=== PATIENT | male | born 1935 | race Caucasian/White ===

== ENCOUNTER 2023-04-20 10:46 | Outpatient (CLI) | payer MEDICARE, BC, SELFPAY | END 2023-04-20 10:47 | disposition home or self-care (01) | LOC: AMB 04-21 11:27 | PROVIDERS: PCP Family Medicine; Visit Provider Emergency Medicine | DX: R53.1 Weakness (principal) | CPT/HCPCS: A0425; A0429 ==

== ENCOUNTER 2023-04-20 11:08 | Emergency (ER) | payer MEDICARE, BC, SELFPAY ==
[2023-04-20] VITALS (30 sets, daily range): BP systolic 87–124; BP diastolic 57–97; PULSE 91–110; RESP 18–26; TEMP 37.3; O2SAT 90–98
--- NOTE | 2023-04-20 11:11 | CT_ITS ---
Patient: ANTONY JAMA Facility:?[facility] Patient ID:?[id number] Site Patient ID:?[id number]. Site :?[id number] Study:?CT-Head WITHOUT-04/20/2023 11:24:59 AM Ordering Physician:NEREYDA Final Report: INDICATION: FALL. PT ON COUMADIN COMPARISON: none TECHNIQUE: A CT volumetric acquisition was performed of the brain without IV contrast. Please note that all CT scans at this facility use dose modulation, iterative reconstruction, and/or weight-based dosing when appropriate to reduce radiation dose to as low as reasonably achievable. FINDINGS: Generalized cortical atrophy is present. There is no hemorrhage. No midline shift or hydrocephalus. Vascular calcifications are present. Basal ganglia calcifications. Chronic white matter changes are present. There is a oblique lucency through the anterior arch of C1 and there is an additional lucency through the body the odontoid. Occipital condyles are intact. Sinuses clear. IMPRESSION: No intracranial hemorrhage. Mildly displaced fracture deformities of the odontoid at the mid/base as well as the right anterior arch of C1, age indeterminate. Called to Dr. Pozo 11:33 a.m. 04.20.23. Please note that all CT scans at this facility use dose modulation, iterative reconstruction, and/or weight-based dosing when appropriate to reduce radiation dose to as low as reasonably achievable. Dictated by Ronan Jacobs MD @ 04/20/2023 11:34:19 AM Signed by:?Ronan Jacobs MD @04/20/2023 11:34:19 AM (Electronic Signature)
--- NOTE | 2023-04-20 11:12 | XR_ITS ---
Patient: ANTONY JAMA Facility:?[facility] Patient ID:?[id number] Site Patient ID:?[id number]. Site :?1935 Study:?XRay-Hip Left Code Trauma - 2 view with pelvis-04/20/2023 11:29:42 AM Ordering Physician:Marivel Pozo Final Report: Indication: Injury, pain Technique: Pelvis and left hip 3 views Comparison: None Findings: Fracture deformity of the left proximal femur is present with intact hardware. Additional intact hardware within the right femoral neck. Degenerative changes at both hips. Intact pubic rami. Vascular calcifications. Degenerative changes lower lumbar spine. There does not appear to be evidence of an acute fracture. Impression: Intertrochanteric fracture of the left proximal femur is present which has been transfixed by open reduction internal fixation hardware. There does not appear to be an acute fracture. Dictated by Ronan Jacobs MD @ 04/20/2023 11:36:18 AM Signed by:?Ronan Jacobs MD @04/20/2023 11:36:18 AM (Electronic Signature)
--- NOTE | 2023-04-20 11:41 | ED.NURSE ---
c collar placed per dr austin
--- NOTE | 2023-04-20 11:44 | CT_ITS ---
Patient: ANTONY JAMA Facility:?[facility] Patient ID:?[id number] Site Patient ID:?[id number]. Site :?[id number] Study:?CT-Spine Cervical -04/20/2023 12:13:35 PM Ordering Physician:NEREYDA Final Report: INDICATION: FALL. FRACTURE SEEN ON HEAD CT TECHNIQUE: CT cervical spine without contrast. COMPARISON: Head CT same day FINDINGS: There is a nondisplaced fracture of the odontoid within the midportion. An additional mildly displaced and slightly comminuted fracture of the right anterior arch of C1 is present. The occipital condyles are maintained. Hypertrophic changes are present between the tip of the odontoid and the C1 arch. Multilevel degenerative facet arthropathy. Discogenic spurring throughout the cervical spine. No vertebral body compression fracture. No facet subluxation deformity. No evidence of temporal bone fracture. Cystic nodule within the left thyroid lobe is incidentally noted. No apical pneumothorax. No cervical adenopathy. IMPRESSION: Fractures of the odontoid and right anterior C1 arch. Please note that all CT scans at this facility use dose modulation, iterative reconstruction, and/or weight-based dosing when appropriate to reduce radiation dose to as low as reasonably achievable. Dictated by Ronan Jacobs MD @ 04/20/2023 12:38:44 PM Signed by:?Ronan Jacobs MD @04/20/2023 12:38:44 PM (Electronic Signature)
--- NOTE | 2023-04-20 12:11 | ED.GENADULT ---
HPI - General Adult General Chief complaint: Head Injury/Pain Stated complaint: fall Time Seen by Provider: 04/20/23 11:11 Source: patient, EMS and RN notes reviewed Mode of arrival: EMS Limitations: other History of Present Illness HPI narrative: Patient is an 87-year-old male who has been at the rehab facility since an ORIF of his left hip about 6 weeks ago. He had a fall last night, unwitnessed. He was noted to have hit his head, no reported loss of consciousness. Patient himself does not have any complaints. He specifically denies headache or neck pain. The care facility noted that he seems to have decreased range of motion in his left hip since his fall though he does not complain about any pain. No reported fevers, cough, difficulty breathing. They have apparently noted that his status seems to have did declined kind of steadily since arrival at the facility. They had started him on treatment for possible UTI but then the urine was reportedly negative on so that was discontinued. There has not been anything really specific going on they just noted that his mental acuity seems to be diminished since arriving. Related Data Allergies Allergy/AdvReac Type Severity Reaction Status Date / Time lisinopril Allergy Unknown Uncoded 04/20/23 12:11 Review of Systems Status of ROS: Reports: 6 or more systems reviewed and unremarkable except as noted in History and below Exam Narrative: Exam Narrative: Vital signs as noted above. In general, an alert, nontoxic elderly male. Head: Normocephalic, atraumatic. Eyes: Pupils are equal reactive. Extraocular movements are full. Conjunctivae are normal. ENT: Mucous membranes are moist. Delete Neck: Supple without lymphadenopathy. Nontender to palpation. Heart: Somewhat irregular, not clear whether this is ectopy or atrial fib. No murmur or rub. Lungs: Clear bilaterally. No increased work of breathing, crackles or wheezes. Abdomen: Soft and nontender. No organomegaly. Extremities: Well perfused. No edema. No calf tenderness. Pulses intact. Range of motion is intact of the left hip, no seeming discomfort. Neurologic: Patient is alert and oriented to person and place. Speech is fluent. Face is symmetric. Moves all extremities equally. Strength is 5 of 5 in bilateral upper extremities. Sensation is intact to light touch. Affect: Normal. Skin: Warm and dry. Well perfused. Const: Vital Signs, click to edit/add: Vital Signs - 24 hr 04/20/23 11:30 04/20/23 11:49 04/20/23 11:50 Temperature 99.2 F Pulse Rate 99 100 Pulse Rate [Left P ulse Oximeter] 95 Respiratory Rate 26 H 20 Blood Pressure 98/64 Blood Pressure [Ri ght Upper Arm] 106/63 Pulse Oximetry 93 95 [facility] 04/20/23 12:09 04/20/23 12:15 04/20/23 12:30 Temperature Pulse Rate 104 H 101 H 109 H Pulse Rate [Left P ulse Oximeter] Respiratory Rate Blood Pressure Blood Pressure [Ri ght Upper Arm] Pulse Oximetry 93 98 95 Oxygen Delivery Ia thod 04/20/23 12:32 04/20/23 12:45 04/20/23 13:00 Temperature Pulse Rate 104 H 100 110 H Pulse Rate [Left P ulse Oximeter] Respiratory Rate 20 Blood Pressure 105/68 Blood Pressure [Ri ght Upper Arm] Pulse Oximetry 92 94 97 [facility] 04/20/23 13:02 04/20/23 13:32 04/20/23 13:32 Temperature Pulse Rate 96 Pulse Rate [Left P ulse Oximeter] Respiratory Rate 18 Blood Pressure 103/63 103/62 103/62 Blood Pressure [Ri ght Upper Arm] Pulse Oximetry 93 [facility] 04/20/23 13:32 04/20/23 14:02 04/20/23 14:32 Temperature Pulse Rate Pulse Rate [Left P ulse Oximeter] Respiratory Rate Blood Pressure 103/62 108/74 109/78 Blood Pressure [Ri ght Upper Arm] Pulse Oximetry Oxygen Delivery Ia thod 04/20/23 15:03 04/20/23 15:32 04/20/23 15:40 Temperature Pulse Rate Pulse Rate [Left P ulse Oximeter] Respiratory Rate 18 Blood Pressure 105/75 87/57 L 111/60 Blood Pressure [Ri ght Upper Arm] Pulse Oximetry Oxygen Delivery Ia thod 04/20/23 16:02 04/20/23 16:32 04/20/23 17:25 Temperature Pulse Rate Pulse Rate [Left P ulse Oximeter] Respiratory Rate 18 Blood Pressure 104/70 89/65 L 124/70 Blood Pressure [Ri ght Upper Arm] Pulse Oximetry Oxygen Delivery Me thod Room Air 04/20/23 17:27 04/20/23 17:30 04/20/23 17:32 Temperature Pulse Rate 91 101 H 101 H Pulse Rate [Left P ulse Oximeter] Respiratory Rate 18 Blood Pressure 113/73 Blood Pressure [Ri ght Upper Arm] Pulse Oximetry 97 97 97 Oxygen Delivery Me thod Room Air 04/20/23 17:52 04/20/23 18:00 04/20/23 18:02 Temperature Pulse Rate 109 H 103 H 97 Pulse Rate [Left P ulse Oximeter] Respiratory Rate 18 Blood Pressure 113/71 Blood Pressure [Ri ght Upper Arm] Pulse Oximetry 95 90 91 Oxygen Delivery Me thod 04/20/23 18:26 04/20/23 18:30 04/20/23 18:32 Temperature Pulse Rate 104 H 98 110 H Pulse Rate [Left P ulse Oximeter] Respiratory Rate 18 Blood Pressure 118/78 Blood Pressure [Ri ght Upper Arm] Pulse Oximetry 95 97 94 Oxygen Delivery Me thod Room Air 04/20/23 18:45 Temperature Pulse Rate 107 H Pulse Rate [Left P ulse Oximeter] Respiratory Rate Blood Pressure Blood Pressure [Ri ght Upper Arm] Pulse Oximetry 93 Oxygen Delivery Me thod Documenting provider has reviewed patient's vital signs: yes Course Course ED Course: Following brief initial evaluation, I sent patient over for a CT of the head given reported anticoagulation trauma. He also had x-rays of the left hip. I was not able to see the images of the CT scan for some reason, but the radiologist did call me saying that the brain looked fine however there was a noted nondisplaced fracture of the dens as well as the ring of C1. Unclear age of these fractures, but we do not have any prior imaging to compare to and the patient denies prior history of neck injury. He continues to deny any neck pain. I did place him in a cervical collar. Will get dedicated cervical spine imaging. The left hip looks intact without damage to the hardware or dislocation. CT of the cervical spine shows the previously mentioned dens fracture and fracture of C1, no other cervical fractures are seen. I reviewed his records, I do not see any history of prior cervical injury. As such, I talked with Neurosurgery, Dr. James, on-call for [place]. He reviewed the images, recommended cervical collar and neurosurgical follow-up. He also 1 of the patient have a CT angiogram. I did do the CT angiogram of the head and neck which is read by Radiology as negative. I checked some basic labs, his INR is therapeutic at 2.4. Metabolic panel largely unremarkable, BUN is mildly elevated at 39 but creatinine is normal at 1. COVID fluid in RSV are negative. White blood cell count is 9.93. Hemoglobin is 9.8. Baseline unknown, but no reported history of bleeding. He did have his hip surgery not too long ago, and may have some persistent anemia related to that. There was quite a delay in getting him taking care of in terms of the collar. I had hoped to get a [place] or [place] collar. Original plan was to transfer him to a different ER, but the physician I spoke to at [place] had suggested it would make more sense to simply have somebody spanish moss picker a collar for him rather than moving the patient and incurring a new ER visit. We did make multiple attempts to do this, contacted several different [facility], but no one had an available collar. [facility] only had 1 [place] and there were not willing to give it to us. [place] apparently was similar. [facility] only had [place] collars 1, which we were able to find here. Patient had been here for 7 hours by this point, had developed some agitation related I think to his underlying dementia. He had 5 mg of Zyprexa which helped. We switched him to the [place] collar, he seems to tolerate this okay, and at this point I have elected to discharge him back to the shelter. He will need neurosurgical follow-up, and they can switch him at that time to a more permanent collar if needed. Vital Signs Vital signs: Initial Vital Signs Temperature 99.2 F 04/20/23 11:30 Temperature Source Temporal Artery Scan 04/20/23 11:30 Pulse Rate 95 04/20/23 11:30 Respiratory Rate 26 H 04/20/23 11:30 Blood Pressure 106/63 04/20/23 11:30 Blood Pressure Mean 77 04/20/23 11:30 Blood Pressure Position Supine 04/20/23 11:30 Pulse Oximetry 93 04/20/23 11:30 Oxygen Delivery Method Room Air 04/20/23 11:30 Vital Signs Temperature 99.2 F 04/20/23 11:30 Pulse Rate 95 04/20/23 11:30 Respiratory Rate 26 H 04/20/23 11:30 Blood Pressure 106/63 04/20/23 11:30 Pulse Oximetry 93 04/20/23 11:30 Oxygen Delivery Method Room Air 04/20/23 11:30 Temperature 99.2 F 04/20/23 11:30 Pulse Rate 107 H 04/20/23 18:45 Respiratory Rate 18 04/20/23 18:32 Blood Pressure 118/78 04/20/23 18:32 Pulse Oximetry 93 04/20/23 18:45 Oxygen Delivery Method Room Air 04/20/23 18:32 Medications Administered Medications: Discontinued Medications Generic Name Dose Route Start Last Admin Trade Name Freq PRN Reason Stop Dose Admin Acetaminophen 1,000 mg 04/20/23 12:52 04/20/23 13:08 Acetaminophen 500 Mg Tablet PO 04/20/23 12:53 1,000 mg ONCE ONE Administration Olanzapine 5 mg 04/20/23 17:02 04/20/23 17:19 Olanzapine 5 Mg/Ml Inj IM 04/20/23 17:03 5 mg ONCE ONE Administration Medical Decision Making Lab Data Labs: Lab Results 04/20/23 04/20/23 Range/Units 11:50 12:20 WBC 9.93 (4.50-11.00) K/uL RBC 3.37 L (4.30-5.90) m/uL Hgb 9.8 L (13.5-17.5) gm/dL Hct 31.8 L (37.0-53.0) % MCV 94 (80-100) fL MCH 29 (26-34) pg MCHC 31 L (32-36) gm/dL RDW Coeff of Crista 17.4 H (11.5-15.5) % Plt Count 173 (140-440) K/uL Neut % (Auto) 77.9 H (42.0-72.0) % Lymph % (Auto) 12.2 L (20-44) % [place] % (Auto) 7.9 (0.0-11.0) % Eos % (Auto) 1.0 (0.0-7.0) % Baso % (Auto) 0.2 (0.0-3.0) % Neut # (Auto) 7.70 H (1.7-7.0) K/uL Lymph # (Auto) 1.20 (0.90-2.90) K/uL [place] # (Auto) 0.80 (0.00-0.90) K/UL Eos # (Auto) 0.10 (0.00-0.50) K/uL Baso # (Auto) 0.02 (0.00-0.30) K/uL Abs Immat Gran (auto) 0.08 (0.00-0.30) K/uL Imm/Tot Granulo (auto) 0.8 % INR 2.40 H (0.91-1.10) APTT 44 H (23-33) Seconds Sodium 139 (135-149) mmol/L Potassium 4.7 (3.6-5.1) mmol/L Chloride 106 (96-114) mmol/L Carbon Dioxide 27 (20-32) mmol/L Anion Gap 6 L (7-15) mEq/L BUN 39 H (7-30) mg/dL Creatinine 1.0 (0.5-1.5) mg/dL Estimated GFR 73 ml/min Glucose 180 H (60-115) mg/dL Calcium 9.7 (8.4-10.6) mg/dL SARS-CoV-2 (PCR) Negative SARS-CoV-2 (Negative) Influenza Type A (PCR) Negative PCR FLU A (Negative) Influenza Type B (PCR) Negative PCR FLU B (Negative) RSV (PCR) Negative PCR RSV (Negative) Discharge Plan Discharge Clinical Impression: Odontoid fracture, C1 cervical fracture Patient Disposition: Xfer SNF Condition: Stable Instructions: Cervical Fracture (DC) Additional Instructions: Cervical collar as placed, should stay in place at all times. Patient will need neurosurgical follow-up with [facility], through [facility]. I spoke with Dr. James today about this patient. CT of the head, CT angiogram of the head and neck are normal. Stand Alone Forms: MyHealth Info Instructions
[2023-04-20 12:32] LABS: Basophils Absolute Auto 0.02 K/uL (0.00-0.30); Basophils Percent Auto 0.2 % (0.0-3.0); Hematocrit 31.8 % (37.0-53.0); Hemoglobin* 9.8 gm/dL (13.5-17.5); Immature Granulocytes Abs Auto 0.08 K/uL (0.00-0.30); Immature Granulocytes Pct Auto 0.8 %; Lymphocytes Percent Auto 12.2 % (20-44); Mean Corpuscular HGB Conc 31 gm/dL (32-36); Mean Corpuscular Hemoglobin 29 pg (26-34); Mean Corpuscular Volume 94 fL (80-100); Monocytes Percent Auto 7.9 % (0.0-11.0); Neutrophils Percent Auto 77.9 % (42.0-72.0); Platelet Count* 173 K/uL (140-440); RDW Coefficient of Variation % 17.4 % (11.5-15.5); Red Blood Count 3.37 m/uL (4.30-5.90); White Blood Count* 9.93 K/uL (4.50-11.00)
[2023-04-20 12:41] LABS: PCR FLU A Negative PCR FLU A (Negative); PCR FLU B Negative PCR FLU B (Negative); PCR RSV Negative PCR RSV (Negative); SARS PCR* Negative SARS-CoV-2 (Negative)
[2023-04-20 12:45] LABS: Slide Review Reflex No
[2023-04-20 12:51] LABS: Chloride* 106 mmol/L (96-114); Potassium* 4.7 mmol/L (3.6-5.1); Sodium* 139 mmol/L (135-149)
[2023-04-20 12:54] LABS: Anion Gap 6 mEq/L (7-15); Blood Urea Nitrogen* 39 mg/dL (7-30); Carbon Dioxide* 27 mmol/L (20-32); Estimated Glomerular Filt Rate 73 ml/min; Glucose* 180 mg/dL (60-115); Partial Thromboplastin Time* 44 Seconds (23-33)
[2023-04-20 12:55] LABS: Calcium* 9.7 mg/dL (8.4-10.6)
[2023-04-20] MEDS: ACETAMINOPHEN 500 MG TABLET 1000 MG PO (13:08)
--- NOTE | 2023-04-20 15:09 | ED.NURSE ---
Call from [facility], updated, awaiting consult from ANW. [facility] had reached out to Pt family Storm Kamara, and Migel. Migel works nights, so global technical writer did call and update Asad.
--- NOTE | 2023-04-20 16:40 | CT_ITS ---
Patient: ANTONY JAMA Facility:?[facility] Patient ID:?[id number] Site Patient ID:?[id number]. Site :?[id number] Study:?CT-Neck Angio Angio CTA HEAD AND NECK-04/20/2023 6:02:06 PM Ordering Physician:NEREYDA Final Report: DATE: 04/20/2023 CLINICAL HISTORY: Patient with fall and cervical spine fractures. TECHNIQUE: Standard helical CT image acquisition of the neck up to the skull base after bolus intravenous contrast enhancement. 2D and 3D MIP images for post-processing were performed and interpreted on an independent workstation and 3D images were permanently archived. COMPARISON: CT same day. FINDINGS: There is no dissection associated with C1 and C2 spine fractures. The origins of the great vessels from the aortic arch are patent. The origin of the right vertebral artery is patent. The origin of the left vertebral artery is patent. The common carotid arteries are patent. There is a mild (<50%) stenosis at the origin of the right internal carotid artery by NASCET criteria. This is caused by calcified plaque with a <2mm residual lumen. There is a moderate (60%) stenosis at the origin of the left internal carotid artery by NASCET criteria. This is caused by calcified plaque with a 1.7mm residual lumen. The rest of the cervical segments of the internal carotid arteries are patent up to the skull base. The left vertebral artery is dominant. The cervical segments of the vertebral arteries are patent up to the skull base. The visualized lung apices are unremarkable. The thyroid gland is unremarkable. The soft tissues of the neck are unremarkable. IMPRESSION: 1. No dissection associated with C1 and C2 spine fractures. 2. Mild (<50%) stenosis at the origin of the right internal carotid artery by NASCET criteria. This is caused by calcified plaque with a <2mm residual lumen. 3. 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 This is caused by calcified plaque with a 1.7mm residual lumen. Please note that all CT scans at this facility use dose modulation, iterative reconstruction, and/or weight-based dosing when appropriate to reduce radiation dose to as low as reasonably achievable. Dictated by Gustavo Mansfield MD @ 04/20/2023 10:41:37 PM Signed by:?Gustavo Mansfield MD @04/20/2023 10:41:37 PM (Electronic Signature)
--- NOTE | 2023-04-20 16:45 | CT_ITS ---
Patient: ANTONY JAMA Facility:?[facility] Patient ID:?[id number] Site Patient ID:?[id number]. Site :?[id number] Study:?CT-Head Angio Angio CTA HEAD AND NECK-04/20/2023 6:03:19 PM Ordering Physician:NEREYDA Final Report: DATE: 04/20/2023 CLINICAL HISTORY: Patient with fall and cervical spine fractures. TECHNIQUE: Standard helical CT image acquisition through the intracranial circulation following intravenous administration of contrast material with bolus tracking. 2D and 3D MIP images for post-processing were performed and interpreted on an independent workstation and 3D images were permanently archived. COMPARISON: CT same day. FINDINGS: There is no cerebral aneurysm or large vessel occlusion. The right internal carotid artery is normal. The right middle cerebral artery and its branches are normal. The right anterior cerebral artery and its branches are normal. The left internal carotid artery is normal. The left middle cerebral artery and its branches are normal. The left anterior cerebral artery and its branches are normal. The anterior communicating artery is well visualized and appears normal. The right vertebral artery and PICA are normal. The left vertebral artery and PICA are normal. The left vertebral artery is dominant. The basilar artery is patent and appears normal. The right posterior cerebral artery is normal. The left posterior cerebral artery is normal. The visualized venous structures are patent. IMPRESSION: Normal CT angiogram of the head without intracranial aneurysm or other neurovascular abnormality. Please note that all CT scans at this facility use dose modulation, iterative reconstruction, and/or weight-based dosing when appropriate to reduce radiation dose to as low as reasonably achievable. Dictated by Gustavo Mansfield MD @ 04/20/2023 10:43:38 PM Signed by:?Gustavo Mansfield MD @04/20/2023 10:43:38 PM (Electronic Signature)
[2023-04-20] MEDS: OLANZapine 5 MG/ML inj IM (17:19)
--- NOTE | 2023-04-20 17:20 | ED.NURSE ---
Pt changed from c collar to [place] collar per Dr. Pozo.
--- NOTE | 2023-04-20 19:11 | ED.NURSE ---
Absorption Plant Operator did call and update family contact Migel about discharge plan. Migel will update Sharda
--- NOTE | 2023-04-20 19:24 | ED.NURSE ---
Report given to ARTUR Green at [facility]. Migel agreed and [facility] updated that Pt will transfer back to [facility] via ambulance.
--- NOTE | 2023-04-20 19:39 | ED.NURSE ---
called dispatch to return to [address] [place] [address]. unable return for EMS [id number]
--- NOTE | 2023-04-20 20:52 | ED.NURSE ---
patient has a one to one in the room with patient. patient will occasionally want the collar off. repositioning of the collar and patient redirected helps distract patient from the collar.
--- NOTE | 2023-04-20 22:02 | ED.NURSE ---
patient repositioned in bed and sitting up. attempting to take the collar off will be talking nonstop and stating this is choking me.
[2023-04-20] MEDS: OLANZapine 5 MG/ML inj 10 MG IM (22:10)
--- NOTE | 2023-04-20 22:10 | ED.NURSE ---
Pt continuing to attempt to remove his [place] collar and yelling and agitated towards 1:1 sitter. MD in room to again explain importance of keeping collar on to the pt due to pt neck fractures and risk of injury. Pt continues to try and remove collar regardless of this explanation. MD ordered additional IM medication due to pt agitation. Security present in the room to assist with med administration due to pt agitation. MD and security did secure pt arms in a light therapeutic hold but pt did not physically resist so no force was needed to secure pt's limbs. Pt did yell repeated vulgarities towards staff throughout this event. Staff exited the room once med was administered. 1:1 sitter remains in room at the bedside.
--- NOTE | 2023-04-20 22:35 | ED.NURSE ---
[facility] RN updated about new pt rx that was sent to [facility] pharmacy for pt.
--- NOTE | 2023-04-20 23:13 | ED.NURSE ---
Pt departs via EMS. [facility] updated about pt departure from ER.
== END 2023-04-20 23:16 | disposition other institution (70) ==
PROVIDERS: Emergency Provider Emergency Medicine; PCP Family Medicine
DX: S09.90XA Unspecified injury of head, initial encounter (principal)
CPT/HCPCS: 36415; 70450; 70496; 70498; 72125; 73502; 80048; 85025; 85610; 85730; 87631; 99284; A9270; Q9967

== ENCOUNTER 2023-04-20 23:15 | Outpatient (CLI) | payer MEDICARE, BC, SELFPAY | END 2023-04-20 23:16 | disposition home or self-care (01) | PROVIDERS: PCP Family Medicine; Visit Provider Emergency Medicine Emergency Medical Services | DX: R41.82 Altered mental status, unspecified (principal); Z99.3 Dependence on wheelchair | CPT/HCPCS: A0425; A0428; A0429 ==

== ENCOUNTER 2023-04-21 01:55 | Outpatient (CLI) | payer MEDICARE, BC, SELFPAY | END 2023-04-21 01:56 | disposition home or self-care (01) | LOC: AMB 04-25 09:01 | PROVIDERS: PCP Family Medicine; Visit Provider Family Medicine | DX: F91.9 Conduct disorder, unspecified (principal) | CPT/HCPCS: A0425; A0427 ==

== ENCOUNTER 2023-04-21 02:19 | Inpatient (IN) | payer MEDICARE, BC, SELFPAY ==
[2023-04-21] VITALS (13 sets, daily range): BP systolic 111–137; BP diastolic 64–89; PULSE 91–119; RESP 16–28; TEMP 35.9–36.8; O2SAT 90–99
--- NOTE | 2023-04-21 03:22 | ED.GENADULT ---
HPI - General Adult General Date Seen: 04/21/23 Chief complaint: Altered Mental Status Stated complaint: Aggression Time Seen by Provider: 04/21/23 02:44 Source: EMS and RN notes reviewed Mode of arrival: EMS Limitations: altered mental status History of Present Illness HPI narrative: Patient is an 87-year-old male who spent most of yesterday here in the emergency department for evaluation of a fall, dens fracture, C1 ring fracture superimposed on either progressive dementia or delirium. He came from [facility] and was sent back there at 11:00 p.m. in a cervical collar with a plan for neurosurgical follow-up. He last at the detention for less than 2 hours before they called EMS because of his agitation. This was well managed with Zyprexa in the ER and does not appear that they gave him a dose before sending him back to us. They have stated that they will not take him back as he will require a facility that can provide one-to-one care. Please see the note from Dr. Pzoo that fully outlines the care received here yesterday. Related Data Previous Rx's Medication Instructions Recorded olanzapine 5 mg tablet (Zyprexa) 5 mg PO BID PRN #30 tabs 04/20/23 Allergies Allergy/AdvReac Type Severity Reaction Status Date / Time lisinopril Allergy Unknown Uncoded 04/20/23 12:11 Review of Systems Narrative: Unchanged from yesterday. 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 He is agitated and pulling at his cervical collar, oxygen, Jernigan catheter. He can be briefly redirected. He does not make any meaningful verbal response. Const: Vital Signs, click to edit/add: Vital Signs - 24 hr 04/21/23 02:25 Temperature 96.6 F L Pulse Rate [Pulse Oximeter] 111 H Respiratory Rate 16 Blood Pressure [Ri ght Upper Arm] 128/83 Pulse Oximetry 98 Oxygen Delivery Me thod Nasal Cannula Course Course ED Course: Patient is seen and examined. His status is no different than it was 3 hours ago when he was discharged. He received a dose of Zyprexa in route and is sedated and relatively cooperative. My options are to either keep him in the emergency department until at discharge plan can be formulated or admit him to the hospital until such a plan can be made. Neither option is good but I did contact [facility] who reluctantly agrees to except him. I think a family conference needs to happen regarding their long-term plans for Mr. Sevilla. He would certainly be an appropriate candidate for hospice/comfort care. I do not know that we are going to find a detention willing to do a 1:1 with him. I suspect that he is going to require significant sedation to keep his cervical collar in place and according to the neurosurgeon that needs to be in place for the next three months. I appreciate [facility]'s willingness to accept this patient. He did receive 5 mg of Zyprexa in the ER prior to transferring to the floor. Vital Signs Vital signs: Initial Vital Signs Temperature 96.6 F L 04/21/23 02:25 Temperature Source Temporal Artery Scan 04/21/23 02:25 Pulse Rate 111 H 04/21/23 02:25 Respiratory Rate 16 04/21/23 02:25 Blood Pressure 128/83 04/21/23 02:25 Blood Pressure Mean 98 04/21/23 02:25 Pulse Oximetry 98 04/21/23 02:25 Oxygen Delivery Method Nasal Cannula 04/21/23 02:25 Vital Signs Temperature 96.6 F L 04/21/23 02:25 Pulse Rate 111 H 04/21/23 02:25 Respiratory Rate 16 04/21/23 02:25 Blood Pressure 128/83 04/21/23 02:25 Pulse Oximetry 98 04/21/23 02:25 Oxygen Delivery Method Nasal Cannula 04/21/23 02:25 Temperature 96.6 F L 04/21/23 02:25 Pulse Rate 111 H 04/21/23 02:25 Respiratory Rate 16 04/21/23 02:25 Blood Pressure 128/83 04/21/23 02:25 Pulse Oximetry 98 04/21/23 02:25 Oxygen Delivery Method Nasal Cannula 04/21/23 02:25 Discharge Plan Discharge Clinical Impression: Delirium due to general medical condition, C1 cervical fracture Patient Disposition: Admitted As Observation Condition: Stable
[2023-04-21] MEDS: OLANZapine 5 MG/ML inj IVP (03:27)
--- NOTE | 2023-04-21 03:39 | ED.NURSE ---
patient report given to elidia SIDDIQUI- patient being admitted to [facility]
--- NOTE | 2023-04-21 05:01 | W.PM.TELEH&P ---
Telehealth- H&P: HPI History of Present Illness Date Seen: 04/21/23 Chief complaint: Behavior Difficulties Narrative: Andrzej Sevilla is seen as an Interactive Telehealth visit. Andrzej Sevilla is a 87 year old male who was sent back to the ER from the intermediate after having some behavioral difficulties. Andrzej has a significant past medical history of unfortunately having a fall yesterday which resulted in a dens fracture and C1 ring fracture. He also has a past medical history of atrial fibrillation anticoagulated on Coumadin, end-stage progressive dementia, congestive heart failure, BPH, hypertension and diabetes mellitus type 2. He was seen yesterday in the emergency room and was placed in a cervical collar with a plan for neurosurgical follow-up. He was discharged to the intermediate and apparently was there for approximately 2 hours when he was sent back via EMS for agitation. The intermediate provider states that he was well-managed from a behavioral standpoint on twice daily Zyprexa in the emergency room, but unfortunately he did not get any further doses before discharge back to the intermediate and they were unable to get him any medications upon arrival. Andrzej was given his medications in the emergency room and has been better controlled from a behavior standpoint, but unfortunately the facility would require one-to-one care and could not take him back this morning. At the time I am seeing Andrzej, he does wake up to verbal command but continues to be quite confused. I am not certain of his baseline, but nursing staff did believe that this may be close to his baseline with his advanced dementia. Andrzej denies any significant pain at the time I am seeing him and really can offer no further history. All of the history on Andrzej is currently achieved through review of the chart, from nursing staff and from the ER provider signout. Review of Systems Status of ROS: Reports: unobtainable due to mental status [facility] Medical History Congestive heart failure ?I50.9 - Heart failure, unspecified (ICD-10) Constipation ?K59.00 - Constipation, unspecified (ICD-10) Hypercholesteremia ?E78.00 - Pure hypercholesterolemia, unspecified (ICD-10) Atrial fibrillation ?I48.91 - Unspecified atrial fibrillation (ICD-10) Malignant neoplasm determined by biopsy of prostate ?C61 - Malignant neoplasm of prostate (ICD-10) Atherosclerotic heart disease ?I25.10 - Atherosclerotic heart disease of [place] coronary artery without angina pectoris (ICD-10) Type 2 diabetes mellitus ?E11.9 - Type 2 diabetes mellitus without complications (ICD-10) Social History What is your current living situation?: unable to answer Problems where you live: unable to answer Problems where you live details: n/a In the past 12 months, utilities in danger of being shut off: unable to answer In past 12 months, lack of transportation kept you from medical appts, meetings, work, or getting things needed for daily living: unable to answer In the past 12 mos, have been you worried that your food would run out before you had money to buy more?: unable to answer In the past 12 mos, the food you bought just didn't last and you didn't have money to buy more?: unable to answer How often does anyone, including family, friends and others, physically hurt you: unable to answer How often does anyone, including family, friends and others, insult or talk down to you: unable to answer How often does anyone, including family, friends and others, threaten you with harm: unable to answer How often does anyone, including family, friends and others, scream or curse at you: unable to answer Meds Home Medications and Allergies Allergies Allergy/AdvReac Type Severity Reaction Status Date / Time lisinopril Allergy Unknown Uncoded 04/20/23 12:11 Exam Narrative Exam Narrative: GENERAL: vital signs reviewed, well developed and nourished, in no distress HEENT: pupils are equal round and reactive to light, extraocular movements are grossly within normal limits and oral mucosa is dry. NECK: A rigid c-collar is in place HEART: Irregularly irregular rate and rhythm consistent with atrial fibrillation with a slightly tachycardic rate at approximately 105 beats per my auscultation. LUNGS: Clear to auscultation bilaterally with good air movement throughout ABDOMEN: Observation from nurse assisted exam, abdomen appears soft, nontender, and nondistended with Positive bowel sounds noted. EXTREMITIES: Strength and sensation is observed to be decreased in the upper and lower extremities, but symmetric. No focal strength deficit is observed SKIN: Observed warm and dry with color normal NEURO: Alert and awake when spoken to. He does answer yes/no questions somewhat appropriately. He does move all extremities spontaneously, but is agitated at times with the physical examination and does not carry on any conversation. I do believe that he does have baseline dementia and is currently having some behavioral difficulties due to his dementia and limitations of movement with his c-collar currently.. PSYCH: Affect confusion with agitation Const Vital Signs, click to edit/add: Vital Signs - 24 hr 04/21/23 02:25 04/21/23 02:27 04/21/23 02:28 Temperature 96.6 F L Pulse Rate 111 H 113 H Pulse Rate [Pulse Oximeter] 111 H Respiratory Rate 16 Blood Pressure 128/83 Blood Pressure [Right Upper Arm] 128/83 Pulse Oximetry 98 96 96 Oxygen Delivery Method Nasal Cannula Nasal Cannula Oxygen Flow Rate 3 04/21/23 02:30 04/21/23 03:09 04/21/23 03:15 Temperature Pulse Rate 112 H 119 H 112 H Pulse Rate [Pulse Oximeter] Respiratory Rate Blood Pressure Blood Pressure [Right Upper Arm] Pulse Oximetry 96 96 94 Oxygen Delivery Method Oxygen Flow Rate 04/21/23 03:30 04/21/23 04:02 Temperature Pulse Rate 105 H Pulse Rate [Pulse Oximeter] Respiratory Rate 16 Blood Pressure Blood Pressure [Right Upper Arm] Pulse Oximetry 99 94 Oxygen Delivery Method Room Air Oxygen Flow Rate Documenting provider has reviewed patient's vital signs: yes Common normals: no apparent distress Exam limitations: altered mental status and behavioral limitations Hospitalist - H&P: Result Imaging CT scan - head: Radiologist's impression: IMPRESSION: No intracranial hemorrhage. Mildly displaced fracture deformities of the odontoid at the mid/base as well as the right anterior arch of C1, age indeterminate. CT- Other: Attestation: I have reviewed the pertinent imaging results. Radiologist's impression: CT of the cervical spine:IMPRESSION: Fractures of the odontoid and right anterior C1 arch. Assessment and Plan Assessment and plan (1) Delirium due to general medical condition: Status: Acute (2) C1 cervical fracture: Status: Acute (3) Odontoid fracture: Status: Acute Plan Assessment: 1. Recent fall with resulting odontoid and right anterior C1 arch fracture?currently in rigid collar 2. Acute metabolic encephalopathy on top of chronic dementia with resultant difficult behavior from #1 above 3. Atrial fibrillation currently anticoagulated on Coumadin with therapeutic INR 4. Hypertension 5. BPH 6. Diabetes mellitus type 2 7. History of congestive heart failure currently with what looks to be volume depletion/dehydration 8. Constipation history 9. Chronic normocytic anemia most likely due to chronic disease with no sign of acute active bleeding?currently at baseline Plan: At this time Andrzej will be admitted to the medical service. Unfortunately, this will be a difficult case as Andrzej is most likely going to have some chronic dementia along with some acute encephalopathy due to his current medical condition. It does seem that he does not like to wear the rigid c-collar, but with his current odontoid and C1 arch fracture, he will most likely need to wear this for quite some time depending on neurosurgery's recommendations. I would suggest a family conference for ongoing goals of care and evaluation by psychiatry if possible for help with some mood stabilizing medications with his current medical condition. I will ask pharmacy to follow his INR for goal between 2.0 and 3.0 with his atrial fibrillation on Coumadin. I will ask pharmacy to also reconcile his home medications for reinitiation as needed. I will put on some correction scale insulin for his diabetes mellitus. I will give some oral pain medications, but will need to watch his behavioral status closely with any type of narcotic pain medication and will need to balance his behavior and symptomatic pain relief. Would suggest follow-up with hematology labs to make sure that his hemoglobin remains stable. I did discuss CODE STATUS with nursing and I do believe there is a POLST document that will need to be retrieved from the intermediate, but at this point, Andrzej would be too confused to answer CODE STATUS questions and he will remain full CODE STATUS until the POLST document can be received. I have explained this plan to Andrzej. Will continue to follow from medical standpoint. Telehealth: Statement Statement Telehealth Visit: Today's History and Physical is provided via interactive telehealth by Braxton Ying MD.? Patient is located at [facility].? Provider is located at [facility].? Nursing staff assisted with the patient's exam. The visit being done today meets criteria for a telehealth visit and the patient or patient?s parent/guardian is aware the visit is a telehealth visit. Camera Start Time: 04:23 Camera End Time: 04:34
--- NOTE | 2023-04-21 06:54 | PC.NURSE ---
disoriented. Pt restless, reaching for things that are not there. Pt frequently attempts to remove C-Collar. 2+ pitting edema to BLE. 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 ?
--- NOTE | 2023-04-21 09:49 | PC.SOCIAL ---
Discharge planning: Called [facility] and spoke with nurse, Angeline, , who clarified pt has been receiving emt intermediate care at the [facility]. He is not in memory care and did not have the level of agitation he has now prior to the fall. Per Angeline at [facility], they can not accept pt back as a one to one care and can not meet his needs at this time. If there are nursing questions for [facility] over the weekend, please call the RN desk on [facility] unit at [phone]. 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
--- NOTE | 2023-04-21 10:01 | REH.PT ---
Orders received for PT Eval & Treat. Chart Reviewed. Pt sitting up in chair and unarousable this am. Not appropriate for PT at this time. Will reattempt eval tomorrow.
[2023-04-21] MEDS: 0.9 % SODIUM CHLORIDE 1000 ml 1,000 ML 100 ML IV ×2 (11:15→20:54)
[2023-04-21] MEDS: SODIUM CHLORIDE 0.9 % (FLUSH) 10 ML SYRINGE 5 ML IVF (11:15)
[2023-04-21 11:28] LABS: INR 2.07 (0.91-1.10); Prothrombin Time 24.8 Seconds
[2023-04-21] MEDS: ACETAMINOPHEN 325 MG TABLET PO ×2 (11:44→17:24)
[2023-04-21] MEDS: atenoloL 25 MG TABLET 75 MG PO (11:44)
--- NOTE | 2023-04-21 13:54 | PM.IMPN1 ---
Progress Note: A&P Assessment and plan (1) Delirium due to general medical condition: Problem details: - unclear if delirium preceded or occurred in consequence of the fall and fx on 04/20/23 - staff at [facility] where he has been living indicate they are not able to safely provide the level of care that he now demonstrates to them, which was 1:1 at time they transferred him to the ED for assessment. Status: Acute (2) C1 cervical fracture: Problem details: - s/p unwitnessed fall 04/20/23 - Neurosurgery reviewed images and recommends c-spine mobilization and follow-up with neurosurgery Status: Acute (3) Odontoid fracture: Problem details: - s/p unwitnessed fall 04/20/23 - Neurosurgery reviewed images and recommends c-spine mobilization and follow-up with neurosurgery Status: Acute (4) Fall: Problem details: - unwitnessed fall on 04/20/2023 with resultant C1C2 fxs Status: Acute (5) History of bad fall: Problem details: - 03/13/2023 with left intertrochanteric fx, s/p ORIF at [place], [place], hospital Status: Acute (6) Atrial fibrillation: Problem details: - anticoagulated on warfarin - continue to A Fib RVR rate control Status: Acute (7) Cognitive impairment: Problem details: - outside medical records I review indicate this as a problem for the past few years, but do not specify any type of dementia - per sonIon, patient's cognition has rapidly declined since 03/13/23 and is not recovering Status: Acute (8) Microscopic hematuria: Problem details: - per RN telephone conversation patient grandsonMigel, on 04/21/23, patient has had a mcintyre catheter in place for the past 1.5 weeks due to urinary retention Status: Acute (9) Urinary retention: Problem details: - 04/21/2023: Mcintyre catheter has been in place for the past 1.5 weeks to address the urinary retention Status: Acute Plan 1. Reviewed impression with patient sonIon, via telephone. Plan for now is to attempt to address possible delirium 2. IV fluids for suspected dehydration. 3. Continue supportive efforts 4. Continue work with occupational therapy and physical therapy 5. Continue work with patient and his family Time Spent With Patient Total time spent: 50 minutes Subjective Date Seen: 04/21/23 Interval history: History of present illness on history and physical: ?Adnrzej Sevilla is seen as an Interactive Telehealth visit. Andrzej Sevilla is a 87 year old male who was sent back to the ER from the senior living after having some behavioral difficulties. Andrzej has a significant past medical history of unfortunately having a fall yesterday which resulted in a dens fracture and C1 ring fracture. He also has a past medical history of atrial fibrillation anticoagulated on Coumadin, end-stage progressive dementia, congestive heart failure, BPH, hypertension and diabetes mellitus type 2. He was seen yesterday in the emergency room and was placed in a cervical collar with a plan for neurosurgical follow-up. He was discharged to the senior living and apparently was there for approximately 2 hours when he was sent back via EMS for agitation. The senior living provider states that he was well-managed from a behavioral standpoint on twice daily Zyprexa in the emergency room, but unfortunately he did not get any further doses before discharge back to the senior living and they were unable to get him any medications upon arrival. Andrzej was given his medications in the emergency room and has been better controlled from a behavior standpoint, but unfortunately the facility would require one-to-one care and could not take him back this morning. At the time I am seeing Andrzej, he does wake up to verbal command but continues to be quite confused. I am not certain of his baseline, but nursing staff did believe that this may be close to his baseline with his advanced dementia. Andrzej denies any significant pain at the time I am seeing him and really can offer no further history.? Hospital day 1. Patient is rather sleepy throughout the morning and early afternoon as I am assessing him often on throughout the day. He does not open his eyes when I asked him to do so. When I try to help him stand he attempts to do so for about 15 seconds while his eyes are closed but is not able to coordinate his efforts and do so safely or independently, and then he stops trying. A not able to get any meaningful history from him. I attempt to call the individuals listed on his hospital contact list. I am unable to reach his grandson, Migel, , but do leave a message for return call. The number listed for his 2nd contact, his son Storm, , is a non functioning telephone number. The 3rd number listed on his contact list is his son Ion, who I am able to reach and speak with, phone number [phone]. According to Ion, patient was living independently until he sustained a major fall on 03/13/2023, and sustained a femur fracture for which he underwent an open reduction internal fixation at the [facility] and [place]. According to Ion, patient's level of awareness has been decreased since the fall, confusion and agitation have been increased since the fall. After a protracted hospitalization, patient was transferred to [address] [place] [address] for rehabilitation purposes. The confusion and agitation have been gradually escalating. After the fall that he sustained on 04/20/2023, the staff at [address] [place] [address] indicated that the patient's level of agitation was too much for them to safely address, indicating that based on their assessment he was requiring one-to-one support and they do not have the staffing to accommodate this. Should the agitation resolve they might be able to continue to try to meet his needs. Exam Narrative: Exam Narrative: Eye exam patient in his hospital room. He is sitting in a chair at his bedside with back at approximately 75 degree angle and feet on the floor. He has a Mcintyre catheter in place. Eyes are closed. Occasionally responds to questions. Denies having pain. As best as I can tell he is not oriented to place, time, or situation. Every now and then attempts to remove the C-collar that he has in place. Yet he states it does not bother him. Lungs are clear to auscultation. Heart tones are chaotic and about 120. Add with active bowel sounds. Pretibial edema bilaterally. No IV access when I 1st examined him due to his pulling the IV out after IVs were established earlier. Const: Vital Signs, click to edit/add: Vital Signs - 24 hr 04/21/23 02:25 04/21/23 02:27 04/21/23 02:28 Temperature 96.6 F L Pulse Rate 111 H 113 H Pulse Rate [Pulse Oximeter] 111 H Respiratory Rate 16 Blood Pressure 128/83 Blood Pressure [Le ft Arm] Blood Pressure [Ri ght Upper Arm] 128/83 Pulse Oximetry 98 96 96 Oxygen Delivery Me thod Nasal Cannula Nasal Cannula Oxygen Flow Rate 3 04/21/23 02:30 04/21/23 03:09 04/21/23 03:15 Temperature Pulse Rate 112 H 119 H 112 H Pulse Rate [Pulse Oximeter] Respiratory Rate Blood Pressure Blood Pressure [Le ft Arm] Blood Pressure [Ri ght Upper Arm] Pulse Oximetry 96 96 94 Oxygen Delivery Me thod Oxygen Flow Rate 04/21/23 03:30 04/21/23 04:02 04/21/23 04:02 Temperature 97.7 F Pulse Rate 105 H Pulse Rate [Pulse Oximeter] 115 H Respiratory Rate 16 26 H Blood Pressure Blood Pressure [Le ft Arm] 124/87 Blood Pressure [Ri ght Upper Arm] Pulse Oximetry 99 94 94 Oxygen Delivery Me thod Room Air Room Air Oxygen Flow Rate 04/21/23 07:00 04/21/23 07:00 04/21/23 11:00 Temperature 98.2 F 98.3 F Pulse Rate Pulse Rate [Pulse Oximeter] 114 H 117 H 117 H Respiratory Rate 28 H 20 Blood Pressure Blood Pressure [Le ft Arm] 123/89 137/77 Blood Pressure [Ri ght Upper Arm] Pulse Oximetry 94 94 Oxygen Delivery Me thod Room Air Room Air Oxygen Flow Rate Documenting provider has reviewed patient's vital signs: yes Labs Labs: Laboratory Results - last 24 hr 04/21/23 11:00 INR 2.07 H Imaging Hip x-ray: Attestation: I have reviewed the pertinent imaging results. Radiologist's impression: Intertrochanteric fracture of the left proximal femur is present which has been transfixed by open reduction internal fixation hardware. There does not appear to be an acute fracture. CT scan - head: Attestation: I have reviewed the pertinent imaging results. Radiologist's impression: No intracranial hemorrhage. Mildly displaced fracture deformities of the odontoid at the mid/base as well as the right anterior arch of C1, age indeterminate. CT scan cervical spine: Radiologist's impression: Fractures of the odontoid and right anterior C1 arch. CT angiogram of neck: Attestation: I have reviewed the pertinent imaging results. Radiologist's impression: 1. No dissection associated with C1 and C2 spine fractures. 2. Mild (<50%) stenosis at the origin of the right internal carotid artery by NASCET criteria. This is caused by calcified plaque with a <2mm residual lumen. 3. 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 This is caused by calcified plaque with a 1.7mm residual lumen. CT angiogram of head: Radiologist's impression: Normal CT angiogram of the head without intracranial aneurysm or other neurovascular abnormality.
[2023-04-21] MEDS: WARFARIN 5 MG TABLET PO (17:24)
[2023-04-21] MEDS: INSULIN ASPART 100 UNIT/ML SUBCUT (17:47)
--- NOTE | 2023-04-21 19:46 | PC.NURSE ---
End of shift-- Pt was initially agitated this morning, he was yelling and aggressive and refused his lab draw. After patient was assisted to the chair, he became very drowsy and at times difficult to arouse. Occasionally, pt is alert and oriented to person only. Speech is garbled, quiet and difficult to understand. Pt is able to follow simple commands most of the time. MD is aware. LS clear but diminished, but difficult to assess. HR irregular. BS+ 4 and pt is passing flatus. He denied nausea, but ate only bites of all three meals today and required assistance to eat. He was up to the chair most of the day, though he was willing to stand at chair side occasionally. C-collar in place as much as possible, but pt continued to remove it and refuse to allow it back on. Jernigan is patent and draining clear, amarjit urine. He c/o pain when asked twice today and was given Tylenol x2. Pt took pills whole in applesauce without difficulty. He was put back to bed via ceiling lift and tolerated it well. Spoke to grandlucas Catalan via telephone for update and all questions were answered. 3x almost completely healed incisions noted to left hip, redness noted to scrotum and coccyx and barrier cream applied. Pencil eraser sized healing stage II pressure ulcer noted to left side of coccyx. Report to oncoming shift.
[2023-04-22] VITALS (7 sets, daily range): BP systolic 104–129; BP diastolic 70–99; PULSE 92–117; RESP 18–24; TEMP 36.4–37; O2SAT 92–99
--- NOTE | 2023-04-22 06:11 | PC.NURSE ---
Pt alert to self and quite sleepy. Arouses easily but combative when awake. Pt has mostly refused all cares, repositioning, and assessments by swinging arms and swearing. Pt quickly falls back asleep when left alone. Pt refuses to wear c-collar as he took it off and threw it across the room. VSS w/ sats >90% on room air. At 0200 pt was cooperative and agreed to be repositioned on side. Mepilex placed to coccyx at this time. Pt cooperative and pleasant the rest of the shift. Jernigan in place and draining with minimal output. updated, no new?orders.
[2023-04-22] MEDS: 0.9 % SODIUM CHLORIDE 1000 ml 1,000 ML 100 ML IV (06:49)
[2023-04-22 07:37] LABS: Hematocrit 33.5 % (37.0-53.0); Hemoglobin* 10.2 gm/dL (13.5-17.5); Mean Corpuscular HGB Conc 30 gm/dL (32-36); Mean Corpuscular Hemoglobin 29 pg (26-34); Mean Corpuscular Volume 95 fL (80-100); Platelet Count* 193 K/uL (140-440); Red Blood Count 3.51 m/uL (4.30-5.90); White Blood Count* 8.79 K/uL (4.50-11.00)
[2023-04-22 07:54] LABS: Slide Review Reflex No
[2023-04-22 07:55] LABS: Chloride* 109 mmol/L (96-114); Potassium* 3.9 mmol/L (3.6-5.1); Sodium* 142 mmol/L (135-149)
[2023-04-22 07:57] LABS: Creatinine* 0.8 mg/dL (0.5-1.5); Estimated Glomerular Filt Rate 86 ml/min
[2023-04-22 07:58] LABS: Anion Gap 9 mEq/L (7-15); Blood Urea Nitrogen* 35 mg/dL (7-30); Calcium* 9.1 mg/dL (8.4-10.6); Carbon Dioxide* 24 mmol/L (20-32); Glucose* 157 mg/dL (60-115)
[2023-04-22 08:18] LABS: INR 2.63 (0.91-1.10); Prothrombin Time 30.1 Seconds
[2023-04-22] MEDS: atenoloL 25 MG TABLET 75 MG PO (09:25)
--- NOTE | 2023-04-22 13:55 | PM.IMPN1 ---
Progress Note: A&P Assessment and plan (1) Delirium due to general medical condition: Problem details: - unclear if delirium preceded or occurred in consequence of the fall and fx on 04/20/23 - staff at [facility] where he has been living indicate they are not able to safely provide the level of care that he now demonstrates to them, which was 1:1 at time they transferred him to the ED for assessment. Status: Acute (2) Dementia: Problem details: History suggests this is relatively recent in onset though unable to find corroborating information Status: Acute (3) Urinary retention: Problem details: - 04/21/2023: Mcintyre catheter has been in place for the past 1.5 weeks to address the urinary retention Status: Acute (4) History of bad fall: Problem details: - 03/13/2023 with left intertrochanteric fx, s/p ORIF at [facility] . Status: Acute (5) Fall: Problem details: - unwitnessed fall on 04/20/2023 with resultant C1C2 fxs Status: Acute (6) Atrial fibrillation: Problem details: - anticoagulated on warfarin - continue to A Fib RVR rate control Status: Acute (7) C1 cervical fracture: Problem details: - s/p unwitnessed fall 04/20/23 - Neurosurgery reviewed images and recommends c-spine mobilization and follow-up with neurosurgery Status: Acute (8) Odontoid fracture: Problem details: - s/p unwitnessed fall 04/20/23 - Neurosurgery reviewed images and recommends c-spine mobilization and follow-up with neurosurgery Status: Acute (9) Microscopic hematuria: Problem details: - per RN telephone conversation patient grandsonMigel, on 04/21/23, patient has had a mcintyre catheter in place for the past 1.5 weeks due to urinary retention Status: Acute (10) Chronic anticoagulation: Problem details: For atrial fibrillation. Obviously high risk for falls. Review plan of care with family. Status: Acute Plan Patient is admitted for ongoing management of delirium in the context of recent cervical fracture and recent falls. Will attempt to manage patient's problems without IV access as he is pulling out his IVs. Will try to continue to keep his cervical collar in place for safety Time Spent With Patient Total time spent: Total time spent today is 50 minutes, 40 minutes in coordination care and discussing with other providers management of delirium, agitation, cervical spine injury. Subjective Date Seen: 04/22/23 Interval history: Andrzej Sevilla is a 87 year old male who was sent back to the ER from the half-way after having some behavioral difficulties. Andrzej has a significant past medical history of unfortunately having a fall yesterday which resulted in a dens fracture and C1 ring fracture. He also has a past medical history of atrial fibrillation anticoagulated on Coumadin, end-stage progressive dementia, congestive heart failure, BPH, hypertension and diabetes mellitus type 2. He was seen yesterday in the emergency room and was placed in a cervical collar with a plan for neurosurgical follow-up. He was discharged to the half-way and apparently was there for approximately 2 hours when he was sent back via EMS for agitation. The half-way provider states that he was well-managed from a behavioral standpoint on twice daily Zyprexa in the emergency room, but unfortunately he did not get any further doses before discharge back to the half-way and they were unable to get him any medications upon arrival. Anrdzej was given his medications in the emergency room and has been better controlled from a behavior standpoint, but unfortunately the facility would require one-to-one care and could not take him back this morning. At the time I am seeing Andrzej, he does wake up to verbal command but continues to be quite confused. I am not certain of his baseline, but nursing staff did believe that this may be close to his baseline with his advanced dementia. Andrzej denies any significant pain at the time I am seeing him and really can offer no further history.? Yesterday patient was noted to be quite sleepy. Today he is pleasant and cooperative and confused. Unable to give any useful history about symptoms. This morning he pulled out both of his IVs. He is also removed his cervical collar repeatedly. Nurses are re-applying repeatedly. Exam Narrative: Exam Narrative: He is sitting up in bed, comfortable and pleasant. Not agitated. Not able to give any significant history about current events or symptoms. Head is without obvious trauma. Palpation over his neck is nontender. He has removed his collar again. No obvious facial asymmetry. Respirations are clear to auscultation. Cardiovascular: S1, S2, irregularly irregular. Abdomen is soft without tenderness or mass. He moves his upper extremities fairly well. Lower extremity strength is symmetric. Somewhat limited testing due to poor cooperation. Const: Vital Signs, click to edit/add: Vital Signs - 24 hr 04/21/23 15:00 04/21/23 15:00 04/21/23 19:36 Temperature 97.4 F L 97.0 F L Pulse Rate [Pulse Oximeter] 98 98 91 Respiratory Rate 20 20 18 Blood Pressure [Le ft Arm] 111/64 112/76 Pulse Oximetry 90 97 Oxygen Delivery Me thod Room Air Room Air 04/21/23 23:34 04/22/23 01:42 04/22/23 03:24 Temperature 97.7 F Pulse Rate [Pulse Oximeter] 91 93 92 Respiratory Rate 18 20 20 Blood Pressure [Le ft Arm] 120/79 Pulse Oximetry 94 94 92 Oxygen Delivery Me thod Room Air Room Air Room Air 04/22/23 07:00 04/22/23 11:00 Temperature 97.6 F 98.4 F Pulse Rate [Pulse Oximeter] 117 H 100 Respiratory Rate 18 20 Blood Pressure [Le ft Arm] 115/71 129/86 Pulse Oximetry 97 98 Oxygen Delivery Me thod Room Air Room Air Documenting provider has reviewed patient's vital signs: yes Labs Labs: Laboratory Results - last 24 hr 04/22/23 07:20 WBC 8.79 RBC 3.51 L Hgb 10.2 L Hct 33.5 L MCV 95 MCH 29 MCHC 30 L Plt Count 193 INR 2.63 H Sodium 142 Potassium 3.9 Chloride 109 Carbon Dioxide 24 Anion Gap 9 BUN 35 H Creatinine 0.8 Estimated GFR 86 Glucose 157 H Calcium 9.1
[2023-04-22] MEDS: WARFARIN 5 MG TABLET PO (18:07)
--- NOTE | 2023-04-22 19:54 | PC.NURSE ---
End of shift-- Pt overall was pleasant and cooperative most of the day. Oriented to person only, but believed he was in [facility] and knew Malena was president. However, pt believed that there were fish in his drinking water, refused to wear his neck brace all day despite encouragement, expressed that [place] [employer] and told this nurse, if I believed every person who told me they were a nurse...' Pt did remove both of his IVs and occasionally patient will also yell out for help. VSS and pt is afebrile. SPO2 maintained >90% on RA. He denied any pain today. Fine crackles auscultated in posterior right base this afternoon, otherwise CTA. HR irregular as per baseline. He denied nausea, but ate only bites of all 3 meals today. He was up to chair and bedside commode with assist of 2, belt and walker and tolerated it fair. 2x BMs today, second was loose and partially incontinent. Jernigan patent and drained approximately 225ml of amarjit colored urine. Report to ARTUR Ni.
[2023-04-23] VITALS (7 sets, daily range): BP systolic 107–130; BP diastolic 64–84; PULSE 93–110; RESP 18–24; TEMP 36.3–36.7; O2SAT 96–99
--- NOTE | 2023-04-23 06:34 | PC.NURSE ---
Shift note: Pt continue to be confused and disoriented. Pt had 2x loose stool this shift. Pt made several attempt to self transfer. Bed alarm on throughout the shift.
[2023-04-23 07:17] LABS: Hematocrit 32.8 % (37.0-53.0); Hemoglobin* 10.2 gm/dL (13.5-17.5); Mean Corpuscular HGB Conc 31 gm/dL (32-36); Mean Corpuscular Hemoglobin 30 pg (26-34); Mean Corpuscular Volume 95 fL (80-100); Platelet Count* 227 K/uL (140-440); Red Blood Count 3.46 m/uL (4.30-5.90); White Blood Count* 10.91 K/uL (4.50-11.00)
[2023-04-23 07:25] LABS: Chloride* 107 mmol/L (96-114); Potassium* 4.3 mmol/L (3.6-5.1); Sodium* 140 mmol/L (135-149)
[2023-04-23 07:28] LABS: Anion Gap 11 mEq/L (7-15); Blood Urea Nitrogen* 37 mg/dL (7-30); Calcium* 9.2 mg/dL (8.4-10.6); Carbon Dioxide* 22 mmol/L (20-32); Estimated Glomerular Filt Rate 73 ml/min; Glucose* 166 mg/dL (60-115)
[2023-04-23 07:34] LABS: INR 3.19 (0.91-1.10); Prothrombin Time 35.2 Seconds
[2023-04-23 07:52] LABS: Slide Review Reflex No
[2023-04-23] MEDS: DULOXETINE 30 MG CAPSULE DR 60 MG PO (09:07)
[2023-04-23] MEDS: METFORMIN 500 MG TABLET PO (09:07)
[2023-04-23] MEDS: ACETAMINOPHEN 325 MG TABLET PO ×2 (09:07→21:19)
[2023-04-23] MEDS: atenoloL 25 MG TABLET 75 MG PO (09:07)
[2023-04-23] MEDS: TAMSULOSIN HCL 0.4 MG CAPSULE PO ×2 (09:09→21:19)
--- NOTE | 2023-04-23 13:03 | P.IMPN_ITS ---
Progress Note: A&P Assessment and plan (1) Delirium due to general medical condition: Problem details: - unclear if delirium preceded or occurred in consequence of the fall and hip fracture on March 13 or cervical fx on 04/20/23. According to his grandson this all seemed to begin with his hip fracture at the beginning of March - staff at [facility] where he has been living indicate they are not able to safely provide the level of care that he now demonstrates to them, which was 1:1 at [facility] e they transferred him to the ED for assessment. Status: Acute (2) Dementia: Problem details: History suggests this is relatively recent in onset though medical record indicates some mild cognitive issues present this past fall Status: Acute (3) Urinary retention: Problem details: - 04/21/2023: Mcintyre catheter has been in place for the past 2 weeks to address the urinary retention. Consider a trial of voiding without a catheter Status: Acute (4) Fall: Problem details: - unwitnessed fall on 04/20/2023 with resultant C1C2 fxs Status: Acute (5) Atrial fibrillation: Problem details: - anticoagulated on warfarin - continue to A Fib RVR rate control Status: Acute (6) C1 cervical fracture: Problem details: - s/p unwitnessed fall 04/20/23 - Neurosurgery reviewed images and recommends c-spine mobilization and follow-up with neurosurgery Status: Acute (7) Odontoid fracture: Problem details: - s/p unwitnessed fall 04/20/23 - Neurosurgery reviewed images and recommends c-spine mobilization and follow-up with neurosurgery Status: Acute (8) Microscopic hematuria: Problem details: - per RN telephone conversation patient grandMigel zavala, on 04/21/23, patient has had a mcintyre catheter in place for the past 2 weeks due to urinary retention Status: Acute (9) Chronic anticoagulation: Problem details: For atrial fibrillation. Obviously high risk for falls. Review plan of care with family. Continue anticoagulation well family reviews risks and benefits Status: Acute (10) Intertrochanteric fracture of left femur: Problem details: ORIF at [facility] March 13 2023 Status: Acute (11) Palliative care encounter: Problem details: I spoke with the grandson today about his dementia/delirium/frequent falls. Discussed the likelihood that he would not be able to return to independent living. Discussed the difficulties of providing care when the patient is pulling out his IVs and refusing to wear a collar. Agreed that medications may be contributing to his delirium and do not have definite indications for use except in the case of need for sedation for severe agitation. Recommend the grandson talk with his father and uncle about goals of care. Status: Acute (12) Poor feeding: Problem details: Obtain lower dentures. May require us to feed him. Encourage oral liquids. Status: Acute Plan Continue in hospital for safe disposition plan. This point patient will need close supervision to prevent him from getting up and will walking and having another fall with potential devastating injury. Continue to evaluate and manage urinary retention, delirium, poor nutrition, Total time spent today is 60 minutes, 40 minutes in coordination of care and discussing with grandson and other providers ongoing management of cervical fracture, poor feeding, cognitive impairment and delirium Subjective Date Seen: 04/23/23 Interval history: Andrzej Sevilla is a 87 year old male who was sent back to the ER from the half-way after having some behavioral difficulties. Andrzej has a significant past medical history of unfortunately having a fall yesterday which resulted in a dens fracture and C1 ring fracture. He also has a past medical history of atrial fibrillation anticoagulated on Coumadin, end-stage progressive dementia, congestive heart failure, BPH, hypertension and diabetes mellitus type 2. He was seen yesterday in the emergency room and was placed in a cervical collar with a plan for neurosurgical follow-up. He was discharged to the half-way and apparently was there for approximately 2 hours when he was sent back via EMS for agitation. The half-way provider states that he was well-managed from a behavioral standpoint on twice daily Zyprexa in the emergency room, but unfortunately he did not get any further doses before discharge back to the half-way and they were unable to get him any medications upon arrival. Andrzej was given his medications in the emergency room and has been better controlled from a behavior standpoint, but unfortunately the facility would require one-to-one care and could not take him back this morning. At the time I am seeing Andrzej, he does wake up to verbal command but continues to be quite confused. I am not certain of his baseline, but nursing staff did believe that this may be close to his baseline with his advanced dementia. Andrzej denies any significant pain at the time I am seeing him and really can offer no further history.? I reviewed his recent past history in the medical record and with his grandson. His grandson reports that he was entirely normal until he had his fall and hip fracture at the beginning of March. He in the medical record I note that he discussed his memory loss with his primary care provider in [place] in February. He was still living independently in assisted living at that time. He was also driving a car. He also had a fall with a lumbar compression fracture in February 2024. After his hip fracture he was delirious. Sounds like this was treated as a hospital-acquired delirium and is expected to improve as he recovered. It has not improved however. The grandson noted that that started him on antidepressants and antipsychotic medicines which he was concerned were making him worse. Those medicines are now discontinued except for p.r.n. Zyprexa for severe agitation. He has not required this in the last few days. There has however been no overall improvement in his cognition or episodes of agitation and delirium. For the 1st day in the hospital the patient was noted to be quite sleepy. Since then he is pleasant and cooperative and confused. Unable to give any useful history about symptoms. He tells me he wants to get out of the chair and walk. Nurses are vigilant about making sure he has standby assist when he is walking. This morning he pulled out both of his IVs. He is also removed his cervical collar repeatedly. Nurses are re-applying repeatedly. He continues to refuse to wear it. He reports no neck pain. He is not eating very well. Mcintyre catheter remains in place due to urinary retention diagnosed a couple weeks ago. Exam 2 Narrative: Exam Narrative: He is sitting in the chair. He is not oriented to his circumstances. He reports no concerns today other than he wants to get up out of the chair. He has no neck tenderness to palpation. Respirations are clear to auscultation. Cardiovascular: S1, S2, irregularly irregular. Abdomen is soft without te nderness or mass. He moves upper and lower extremities fairly well. He is slow to follow instructions and needs quite a bit of direction to follow instructions. Const: Vital Signs, click to edit/add: Vital Signs - 24 hr 04/22/23 15:00 04/22/23 15:00 04/22/23 19:00 Temperature 98.0 F 98.4 F Pulse Rate [Pulse Oximeter] 103 H 103 H 100 Respiratory Rate 24 Blood Pressure [Le ft Arm] 104/70 120/99 H Pulse Oximetry 97 99 Oxygen Delivery Me thod Room Air Room Air 04/22/23 23:00 04/22/23 23:00 04/23/23 03:00 Temperature 98.6 F 98.1 F Pulse Rate [Pulse Oximeter] 106 H 106 H 106 H Respiratory Rate 24 24 24 Blood Pressure [Le ft Arm] 117/67 Pulse Oximetry 99 98 Oxygen Delivery Me thod Room Air Room Air 04/23/23 07:00 04/23/23 07:00 04/23/23 11:00 Temperature 97.8 F 97.9 F Pulse Rate [Pulse Oximeter] 110 H 110 H 110 H Respiratory Rate 20 20 18 Blood Pressure [Le ft Arm] 130/78 110/84 Pulse Oximetry 96 96 Oxygen Delivery Me thod Room Air Room Air Documenting provider has reviewed patient's vital signs: yes Labs Labs: Laboratory Results - last 24 hr 04/23/23 04/23/23 06:47 10:45 WBC 10.91 RBC 3.46 L Hgb 10.2 L Hct 32.8 L MCV 95 MCH 30 MCHC 31 L Plt Count 227 INR 3.19 H Sodium 140 Potassium 4.3 Chloride 107 Carbon Dioxide 22 Anion Gap 11 BUN 37 H Creatinine 1.0 Estimated GFR 73 Glucose 166 H Calcium 9.2 TSH 2.530 Lab Acknowledgement Test Added
[2023-04-23] MEDS: WARFARIN 2 MG TABLET PO (16:52)
--- NOTE | 2023-04-23 18:44 | PC.NURSE ---
End of shift-- Pt oriented to person this morning, but alert and oriented this afternoon and appeared much more clear headed. Pt expressed frustration regarding his lack of independence this evening and his inability to remember most of the last month. He stated, it's like a nightmare, and became tearful. Pleasant and cooperative today. VSS and pt is afebrile. SPO2 maintained >90% on RA. He c/o pain this morning and was given Tylenol with apparent relief. LS CTA. He denied nausea and tolerated small amounts of a regular diet today. He was able to feed himself with minimal assistance today. HR irregular as per baseline. He was up to the commode and chair with assist of 2, belt and walker and tolerated it fairly well while awake. Pt very drowsy late morning and while sleepy, pt required use of ceiling lift to get back to bed.
[2023-04-24 01:50] VITALS: BP 107/66; PULSE 97; RESP 22; TEMP 36.3; O2SAT 99
--- NOTE | 2023-04-24 05:08 | PC.NURSE ---
[id number]: Patient pleasant. Alert to self and and President. C/o being frustrated with memory loss. Refused cervical collar. PRN Tylenol x1 for discomfort. Frequent T&R. A2w/walker to BSC. Low urine output. Encourage PO intake with some success with 250mL water. Refused snacks. Jernigan patent. Mepilex to coccyx changed.
[2023-04-24 06:11] LABS: Hematocrit 32.1 % (37.0-53.0); Hemoglobin* 9.9 gm/dL (13.5-17.5); Mean Corpuscular HGB Conc 31 gm/dL (32-36); Mean Corpuscular Hemoglobin 30 pg (26-34); Mean Corpuscular Volume 96 fL (80-100); Platelet Count* 198 K/uL (140-440); Red Blood Count 3.35 m/uL (4.30-5.90); White Blood Count* 8.67 K/uL (4.50-11.00)
[2023-04-24 06:18] LABS: Chloride* 109 mmol/L (96-114); Sodium* 141 mmol/L (135-149)
[2023-04-24 06:19] LABS: Potassium* 3.8 mmol/L (3.6-5.1)
[2023-04-24 06:21] LABS: Creatinine* 0.9 mg/dL (0.5-1.5); Estimated Glomerular Filt Rate 83 ml/min; Slide Review Reflex No
[2023-04-24 06:22] LABS: Anion Gap 8 mEq/L (7-15); Blood Urea Nitrogen* 35 mg/dL (7-30); Carbon Dioxide* 24 mmol/L (20-32); Glucose* 143 mg/dL (60-115); INR 4.41 (0.91-1.10); Prothrombin Time 45.7 Seconds
[2023-04-24 07:00] VITALS: BP 113/70; PULSE 93; RESP 24; TEMP 36.6; O2SAT 94
--- NOTE | 2023-04-24 07:49 | P.IMPN_ITS ---
Progress Note: A&P Assessment and plan (1) C1 cervical fracture: Problem details: - s/p unwitnessed fall 04/20/23, ED visits 04/20 and 04/21 - Neurosurgery reviewed images and recommends c-spine mobilization and outpatient follow-up with neurosurgery 04/24: Discussion with Dr. James, [facility], patient noncompliant with wearing C-collar. No other suggestions. Recommends palliative care discussion with family, knowing risks, potential outcomes. Status: Acute (2) Odontoid fracture: Problem details: - s/p unwitnessed fall 04/20/23 - Neurosurgery reviewed images and recommends c-spine mobilization and follow-up with neurosurgery 04/24: Neurosurgery recommendations as above Status: Acute (3) Delirium due to general medical condition: Problem details: - unclear if delirium preceded or occurred in consequence of the fall and hip fracture on March 13 or cervical fx on 04/20/23. According to his grandson this all seemed to begin with his hip fracture at the beginning of March - staff at [facility] where he has been living indicate they are not able to safely provide the level of care that he now demonstrates to them, which was 1:1 at time they transferred him to the ED for assessment 04/24: Patient has remained calm and cooperative during hospitalization. No sedatives/antipsychotics used. MRI ordered to further assess cognitive decline. Status: Acute (4) Dementia: Problem details: History suggests this is relatively recent in onset though medical record indicates some mild cognitive issues present this past fall Mini-Cog scores in 2021 = 5, 2022 = 3. EMR shows self report of concern for declining memory Status: Acute (5) Fall: Problem details: Unwitnessed fall on 04/20/2023 with resultant C1C2 fxs. Increased bleed risk while on anticoagulation Status: Acute (6) Atrial fibrillation: Problem details: - anticoagulated on warfarin, pharmacy to manage. Awaiting family decision to continue/discontinue - continue atenolol for rate control Status: Acute (7) Chronic anticoagulation: Problem details: For atrial fibrillation. Obviously high risk for falls. Review plan of care with family. Continue anticoagulation while family reviews risks and benefits Status: Acute (8) Urinary retention: Problem details: On admission, Mcintyre catheter has been in place for the past 2 weeks to address the urinary retention. Consider a trial of voiding without a catheter Decreased urinary output without evidence of acute kidney injury Status: Acute (9) Microscopic hematuria: Problem details: per RN telephone conversation with patient's grandsonMigel, on 04/21/23, patient has had a mcintyre catheter in place for the past 2 weeks due to urinary retention Hemoglobin 9.9, stable, baseline. Continue to monitor Status: Acute (10) Intertrochanteric fracture of left femur: Problem details: ORIF at [facility] March 13 2023 Status: Chronic (11) Poor feeding: Problem details: Obtain lower dentures. May require us to feed him. Encourage oral liquids. Status: Acute (12) Type 2 diabetes mellitus: Problem details: Continue metformin. Hemoglobin A1c ordered. Glucose checks ACHS. Status: Chronic (13) Palliative care encounter: Problem details: 04/23: I spoke with the grandson today about his dementia/delirium/frequent falls. Discussed the likelihood that he would not be able to return to independent living. Discussed the difficulties of providing care when the patient is pulling out his IVs and refusing to wear a collar. Agreed that medications may be contributing to his delirium and do not have definite indications for use except in the case of need for sedation for severe agitation. Recommend the grandson talk with his father and uncle about goals of care. Status: Acute Plan Continue in hospital for safe disposition plan. This point patient will need close supervision to prevent him from getting up and will walking and having another fall with potential devastating injury. Continue to evaluate and manage urinary retention, delirium, poor nutrition. Disposition - ?Discharge back to [facility], palliative cares. ?Memory care unit. Has remained calm, cooperative, without use of antipsychotic/sedatives. Time Spent With Patient Total time spent: Total time spent caring for the patient today was 45 minutes. This includes time spent for the visit reviewing the chart, time spent during the visit, time spent after the visit and documentation and planning in coordination of care. Subjective Date Seen: 04/24/23 Interval history: Patient is seen lying in bed this morning. Oriented to self only. Denies pain of any sort this morning. No events reported overnight. Scheduled for a brain MRI this morning, further assess progressing cognitive decline. Exam Narrative: Exam Narrative: PHYSICAL EXAM General: Calm, NAD HEENT: Normocephalic, atraumatic, sclera white, EOMI, oral mucosa dry Cardiovascular: RRR, S1S2. +2 pitting edema Pulmonary: CTA bilaterally without rhonchi, rales, expiratory wheezes. No dyspnea on room air Abdominal: Soft, nondistended, NTTP Neurological: Alert, oriented to self, no focal findings Extremities: No gross joint deformity or swelling. AROMI. Neurovascularly intact Skin: Warm, dry. Const: Vital Signs, click to edit/add: Vital Signs - 24 hr 04/23/23 11:00 04/23/23 15:00 04/23/23 15:00 Temperature 97.9 F 97.4 F L Pulse Rate [Pulse Oximeter] 110 H 93 93 Respiratory Rate 18 18 Blood Pressure [Le ft Arm] 110/84 120/71 Pulse Oximetry 96 97 Oxygen Delivery Me thod Room Air Room Air 04/23/23 21:16 04/23/23 22:48 04/23/23 23:59 Temperature 97.4 F L Pulse Rate [Pulse Oximeter] 97 97 98 Respiratory Rate 24 24 Blood Pressure [Le ft Arm] 107/64 Pulse Oximetry 99 97 Oxygen Delivery Me thod Room Air Room Air 04/24/23 01:50 Temperature 97.4 F L Pulse Rate [Pulse Oximeter] 97 Respiratory Rate 22 Blood Pressure [Le ft Arm] 107/66 Pulse Oximetry 99 Oxygen Delivery Me thod Room Air Labs Labs: Laboratory Results - last 24 hr 04/23/23 04/23/23 04/24/23 06:47 10:45 05:43 WBC 10.91 8.67 RBC 3.46 L 3.35 L Hgb 10.2 L 9.9 L Hct 32.8 L 32.1 L MCV 95 96 MCH 30 30 MCHC 31 L 31 L Plt Count 227 198 INR 4.41 H Sodium 141 Potassium 3.8 Chloride 109 Carbon Dioxide 24 Anion Gap 8 BUN 35 H Creatinine 0.9 Estimated GFR 83 Glucose 143 H Calcium 9.0 TSH 2.530 Lab Acknowledgement Test Added
[2023-04-24] MEDS: TAMSULOSIN HCL 0.4 MG CAPSULE PO (09:17)
[2023-04-24] MEDS: atenoloL 25 MG TABLET 75 MG PO (09:17)
[2023-04-24] MEDS: METFORMIN 500 MG TABLET PO (09:17)
--- NOTE | 2023-04-24 10:51 | MR_ITS ---
Patient: ANTONY JAMA Facility:?[facility] Patient ID:?[id number] Site Patient ID:?[id number]. Site :?[id number] Study:?MRI-Head WO-04/24/2023 11:36:44 AM Ordering Physician:JUSTIN Final Report: Indication: Cognitive decline. Technique: Multiplanar, multisequence MRI of the brain was performed without intravenous contrast. Comparison: None available at the time of interpretation. Findings: Suggestion of an odontoid process fracture. Vlpl-xo-hqircnil spondylosis visualized upper cervical spine. The corpus callosum and pituitary gland appear intact. There is no restricted diffusion. There is a small amount of layering hemorrhage within the occipital horns of the lateral ventricles. Small microhemorrhages within the right cerebellum and right frontal regions. The ventricles are proportionate to the cerebral sulci. The 4th ventricle appears midline. The basal cisterns appear patent. Lcyz-vr-grzkuxgq parenchymal volume loss. Mild scattered T2 FLAIR hyperintense foci within the subcortical and periventricular white matter, favored to represent chronic ischemic microvascular disease. There is no intracranial mass, abnormal mass-effect or midline shift identified. Major intracranial vascular flow voids appear grossly intact. Thinning of the ocular lenses. Mild paranasal sinus mucosal disease. Impression: 1. Small amount of layering subarachnoid hemorrhage along the occipital horns of the lateral ventricles. 2. Suggestion of an odontoid process fracture. Correlate with any prior CT imaging. 3. No acute/subacute infarct. 4. 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 Results communicated with Dr. Weir over the telephone by Dr. Jane at 1630 hours on 04/24/2023. Dictated by Josue Jane MD @ 04/24/2023 4:39:19 PM Signed by:?Josue Jane MD @04/24/2023 4:39:19 PM (Electronic Signature)
[2023-04-24 11:00] VITALS: BP 104/71; PULSE 99; RESP 20; TEMP 36.1; O2SAT 98
[2023-04-24 12:00] LABS: Hemoglobin A1C* 6.6 % (0-5.6)
[2023-04-24 15:00] VITALS: BP 99/67; PULSE 93; RESP 22; TEMP 35.8; O2SAT 97
--- NOTE | 2023-04-24 16:35 | CT_ITS ---
Final Report Patient: ANTONY JAMA Facility:?[facility] Patient ID:?[id number] Site Patient ID:?[id number]. Site :?[id number] Study:?CT Head WITHOUT-04/20/2023 11:24:59 AM Ordering Physician:NEREYDA Final Report: INDICATION: FALL. PT ON COUMADIN COMPARISON: none TECHNIQUE: A CT volumetric acquisition was performed of the brain without IV contrast. Please note that all CT scans at this facility use dose modulation, iterative reconstruction, and/or weight-based dosing when appropriate to reduce radiation dose to as low as reasonably achievable. FINDINGS: Generalized cortical atrophy is present. There is no hemorrhage. No midline shift or hydrocephalus. Vascular calcifications are present. Basal ganglia calcifications. Chronic white matter changes are present. There is a oblique lucency through the anterior arch of C1 and there is an additional lucency through the body the odontoid. Occipital condyles are intact. Sinuses clear. IMPRESSION: No intracranial hemorrhage. Mildly displaced fracture deformities of the odontoid at the mid/base as well as the right anterior arch of C1, age indeterminate. Called to Dr. Pozo 11:33 a.m. 04.20.23. Please note that all CT scans at this facility use dose modulation, iterative reconstruction, and/or weight-based dosing when appropriate to reduce radiation dose to as low as reasonably achievable. Dictated by Ronan Jacobs MD @ 04/20/2023 11:34:19 AM (Electronic Signature)
[2023-04-24] MEDS: PHYTONADIONE (VIT K1) 5 MG in 0.9 % SODIUM CHLORIDE 50 ml 50 ML 101 MG IVPB (17:27)
--- NOTE | 2023-04-24 21:52 | PM.EN ---
Chart Event Note Time Seen by Provider: 16:00 Date Seen: 04/24/23 Chart Event Note: Dr. Jane from radiology called and discussed the results of the MRI brain, below. He suggested a CT head without contrast this afternoon for a baseline study. This was obtained, results below. I spoke with the patient's grandson at the patient's bedside to give results of MRI and recommended discontinuing coumadin. I also spoke with the neurosurgeon, Dr. James, [facility] [place] [facility] who stated that this patient would not be appropriate for any surgical intervention and suggested a goals of care discussion with consideration given to comfort-focused treatment and no further imaging. Patient's grandson is no longer at bedside tonight. Due to patient's INR of 4.4 today, I stopped all coumadin related orders and ordered IV vitamin K to reverse coumadin. Facility:?[facility] Patient ID:?[id number] Site Patient ID:?[id number]. Site :?[id number] Study:?MRI Head WO-04/24/2023 11:36:44 AM Ordering Physician:JUSTIN Final Report: Indication: Cognitive decline. Technique: Multiplanar, multisequence MRI of the brain was performed without intravenous contrast. Comparison: None available at the time of interpretation. Findings: Suggestion of an odontoid process fracture. Padz-gb-opnswclh spondylosis visualized upper cervical spine. The corpus callosum and pituitary gland appear intact. There is no restricted diffusion. There is a small amount of layering hemorrhage within the occipital horns of the lateral ventricles. Small microhemorrhages within the right cerebellum and right frontal regions. The ventricles are proportionate to the cerebral sulci. The 4th ventricle appears midline. The basal cisterns appear patent. Hadx-tb-mgxcqdmw parenchymal volume loss. Mild scattered T2 FLAIR hyperintense foci within the subcortical and periventricular white matter, favored to represent chronic ischemic microvascular disease. There is no intracranial mass, abnormal mass-effect or midline shift identified. Major intracranial vascular flow voids appear grossly intact. Thinning of the ocular lenses. Mild paranasal sinus mucosal disease. Impression: 1. Small amount of layering subarachnoid hemorrhage along the occipital horns of the lateral ventricles. 2. Suggestion of an odontoid process fracture. Correlate with any prior CT imaging. 3. No acute/subacute infarct. 4. 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 Results communicated with Dr. Kelsey over the telephone by Dr. Jane at 1630 hours on 04/24/2023. Dictated by Josue Jane MD @ 04/24/2023 4:39:19 PM (Electronic Signature) Facility:?[facility] Patient ID:?[id number] Site Patient ID:?[id number]. Site :?[id number] Study:?CT Head WITHOUT-04/24/2023 5:10:53 PM Ordering Physician:?DR. KELSEY Final Report: Indication : Trauma. Technique : CT of the brain without intravenous contrast. Comparison: MRI brain 04/24/2023. CT head 04/20/2023. Findings: No acute blurring of the guerrero-white differentiation. Small amount of layering subarachnoid hemorrhage within the occipital horns of the lateral ventricles, as noted on the prior 04/24/2023 MRI. This is new since CT head 04/20/2023. The ventricles are proportionate to the cerebral sulci. The 4th ventricle is midline. Basal cisterns appear patent. Mild to moderate parenchymal volume loss. There is mild patchy periventricular hypodensity, favored to represent chronic ischemic microvascular disease. There is no intracranial mass, mass effect or midline shift identified. Partially visualized odontoid and anterior C1 arch fractures. Impression: 1. Small amount of layering subarachnoid hemorrhage within the occipital horns of the lateral ventricles as noted on the recent MRI 04/24/2023. This is new since the prior CT 04/20/2023. 2. Ghul-nf-mdyfemlc chronic ischemic microvascular disease. 3. Partially visualized upper cervical spine fractures. Please note that all CT scans at this facility use dose modulation, iterative reconstruction, and/or weight-based dosing when appropriate to reduce radiation dose to as low as reasonably achievable. Dictated by Josue Jane MD @ 04/24/2023 5:42:05 PM (Electronic Signature)
--- NOTE | 2023-04-24 22:45 | PC.NURSE ---
Patient pleasant and cooperative during the beginning of the shift. Refusing to eat breakfast/lunch, but cooperating with staff and able t get MRI done. Vitally stable and walking from bed to chair with assist of 1, GB/walker. Around 1600 patient started becoming resistant to care and staff. Swearing and wanting to go home. Staff attempted to redirect, reorient, therapeutic communication and a quiet room. Alli arrived not long after. Patient more cooperative. Agreed to go down for head CT and allow staff to place IV. Vitamin K administered via IV for brain bleed. Jernigan catheter removed- plan for patient to void independently. If not, bladder scan and straight cath if needed. Patient refusing to eat or drink. At 1999 patient refusing all cares, medications and vitals. Nursing continued to try for cares- patient refused. At 2199 nursing checked and patient brief dry- patient refusing bladder scan and for any other cares. 2244 nursing went in to adjust patient and noticed bed sheets were wet. Patient had a small incontinent void. Brief and bedding changed.?Nursing to continue to monitor, reorient and attempt nursing cares.
[2023-04-25 00:10] VITALS: BP 108/84; PULSE 99; RESP 20; TEMP 36.5; O2SAT 95
[2023-04-25 03:30] VITALS: BP 127/70; PULSE 97; RESP 20; TEMP 36.3; O2SAT 97
[2023-04-25 06:19] LABS: Hematocrit 32.5 % (37.0-53.0); Hemoglobin* 9.9 gm/dL (13.5-17.5); Mean Corpuscular HGB Conc 31 gm/dL (32-36); Mean Corpuscular Hemoglobin 29 pg (26-34); Mean Corpuscular Volume 96 fL (80-100); Platelet Count* 190 K/uL (140-440); Red Blood Count 3.37 m/uL (4.30-5.90); White Blood Count* 8.34 K/uL (4.50-11.00)
[2023-04-25 06:23] LABS: Slide Review Reflex No
[2023-04-25 06:32] LABS: Chloride* 108 mmol/L (96-114); Potassium* 3.6 mmol/L (3.6-5.1); Sodium* 142 mmol/L (135-149)
[2023-04-25 06:35] LABS: Anion Gap 11 mEq/L (7-15); Blood Urea Nitrogen* 30 mg/dL (7-30); Carbon Dioxide* 23 mmol/L (20-32); Creatinine* 0.8 mg/dL (0.5-1.5); Estimated Glomerular Filt Rate 86 ml/min
[2023-04-25 06:36] LABS: Calcium* 8.9 mg/dL (8.4-10.6); Glucose* 137 mg/dL (60-115)
[2023-04-25 06:44] LABS: INR 1.85 (0.91-1.10); Prothrombin Time 22.7 Seconds
--- NOTE | 2023-04-25 08:19 | P.IMPN_ITS ---
Progress Note: A&P Assessment and plan (1) C1 cervical fracture: Problem details: - s/p unwitnessed fall 04/20/23, ED visits 04/20 and 04/21 - Neurosurgery reviewed images and recommends c-spine mobilization and outpatient follow-up with neurosurgery 04/24: Discussion with Dr. James, [facility], patient noncompliant with wearing C-collar. No other suggestions. Recommends palliative care discussion with family, knowing risks, potential outcomes. Status: Acute (2) Odontoid fracture: Problem details: - s/p unwitnessed fall 04/20/23 - Neurosurgery reviewed images and recommends c-spine mobilization and follow-up with neurosurgery 04/24: Neurosurgery recommendations as above Status: Acute (3) SAH (subarachnoid hemorrhage): Problem details: -MRI shows small amount of layering subarachnoid hemorrhage along the occipital horns of the lateral ventricles. No evidence of infarct -repeat CT confirms same, which is a change since CT on 04/20/2023 -Coumadin discontinued, discussed with patient's grandson. As INR was 4.41, vitamin K was given to reverse this. -Neurosurgery contacted, Dr. Jmaes, no surgical intervention, recommending palliative care discussion with family Status: Acute (4) Delirium due to general medical condition: Problem details: - unclear if delirium preceded or occurred in consequence of the fall and hip fracture on March 13 or cervical fx on 04/20/23. According to his grandson this all seemed to begin with his hip fracture at the beginning of March - staff at [facility] where he has been living indicate they are not able to safely provide the level of care that he now demonstrates to them, which was 1:1 at time they transferred him to the ED for assessment 04/24: Patient has remained calm and cooperative during hospitalization. No sedatives/antipsychotics used. MRI ordered to further assess cognitive decline, results as above. 04/25: Refused meds, dinner last evening. This would be in alignment with further palliative cares discussion with family. rehabilitation services director aware, continuing to look for placement, ?return to [facility] Adding seroquel at bedtime Status: Acute (5) Dementia: Problem details: History suggests this is relatively recent in onset though medical record indicates some mild cognitive issues present this past fall Mini-Cog scores in 2021 = 5, 2022 = 3. EMR shows self report of concern for declining memory Status: Acute (6) Fall: Problem details: Unwitnessed fall on 04/20/2023 with resultant C1C2 fxs. Increased bleed risk while on anticoagulation Status: Acute (7) Atrial fibrillation: Problem details: - anticoagulated on warfarin, pharmacy to manage. 04/24 - discontinued in setting a SAH, discussed with grandson - continue atenolol for rate control Status: Acute (8) Chronic anticoagulation: Problem details: For atrial fibrillation. Obviously high risk for falls. Review plan of care with family. Discontinued 04/24 Status: Acute (9) Urinary retention: Problem details: On admission, Mcintyre catheter has been in place for the past 2 weeks to address the urinary retention Decreased urinary output without evidence of acute kidney injury 04/24: Mcintyre catheter discontinued, bladder scan with straight cath t.i.d. p.r.n. Status: Acute (10) Microscopic hematuria: Problem details: per RN telephone conversation with patient's grandsonMigel, on 04/21/23, patient has had a mcintyre catheter in place for the past 2 weeks due to urinary retention UC negative Hemoglobin 9.9, stable, baseline. Continue to monitor Status: Acute (11) Intertrochanteric fracture of left femur: Problem details: ORIF at [facility] March 13 2023 Status: Chronic (12) Poor feeding: Problem details: Obtain lower dentures. May require us to feed him. Encourage oral liquids. In alignment with further palliative cares discussion with family Status: Acute (13) Type 2 diabetes mellitus: Problem details: Continue metformin. Hemoglobin A1c 6.6. Change glucose checks to b.i.d. to minimize possibly disrupting interactions Status: Chronic (14) Palliative care encounter: Problem details: 04/23: I spoke with the grandson today about his dementia/delirium/frequent falls. Discussed the likelihood that he would not be able to return to independent living. Discussed the difficulties of providing care when the patient is pulling out his IVs and refusing to wear a collar. Agreed that medications may be contributing to his delirium and do not have definite indications for use except in the case of need for sedation for severe agitation. Recommend the grandson talk with his father and uncle about goals of care. Status: Acute Plan Continue in hospital for safe disposition plan. This point patient will need close supervision to prevent him from getting up and will walking and having another fall with potential devastating injury. Continue to evaluate and manage urinary retention, delirium, poor nutrition. Disposition - ?Discharge back to [facility], palliative cares. ?Memory care unit. rehabilitation services director to reach out to family for family care conference Time Spent With Patient Total time spent: Total time spent caring for the patient today was 45 minutes. This includes time spent for the visit reviewing the chart, time spent during the visit, time spent after the visit and documentation and planning in coordination of care. Subjective Date Seen: 04/25/23 Exam Const: Vital Signs, click to edit/add: Vital Signs - 24 hr 04/24/23 11:00 04/24/23 15:00 04/24/23 15:00 Temperature 97.0 F L 96.4 F L Pulse Rate [Pulse Oximeter] 99 93 93 Respiratory Rate 20 22 Blood Pressure [Le ft Arm] 104/71 99/67 Pulse Oximetry 98 97 Oxygen Delivery Me thod Room Air Room Air 04/25/23 00:10 04/25/23 00:10 04/25/23 03:30 Temperature 97.7 F 97.4 F L Pulse Rate [Pulse Oximeter] 99 97 Respiratory Rate 20 20 20 Blood Pressure [Le ft Arm] 108/84 127/70 Pulse Oximetry 95 97 Oxygen Delivery Me thod Room Air Room Air Labs Labs: Laboratory Results - last 24 hr 04/24/23 04/24/23 04/25/23 05:43 11:09 06:00 WBC 8.34 RBC 3.37 L Hgb 9.9 L Hct 32.5 L MCV 96 MCH 29 MCHC 31 L Plt Count 190 INR 1.85 H Sodium 142 Potassium 3.6 Chloride 108 Carbon Dioxide 23 Anion Gap 11 BUN 30 Creatinine 0.8 Estimated GFR 86 Glucose 137 H Hemoglobin A1c 6.6 H Calcium 8.9 Lab Acknowledgement Test Added
[2023-04-25 08:23] VITALS: BP 117/80; PULSE 125; RESP 24; TEMP 36.6; O2SAT 95
[2023-04-25] MEDS: METFORMIN 500 MG TABLET PO (08:32)
[2023-04-25] MEDS: atenoloL 25 MG TABLET 75 MG PO (08:32)
[2023-04-25] MEDS: TAMSULOSIN HCL 0.4 MG CAPSULE PO (08:32)
[2023-04-25] MEDS: SODIUM CHLORIDE 0.9 % (FLUSH) 10 ML SYRINGE 5 ML IVF (08:33)
--- NOTE | 2023-04-25 09:22 | PM.IMPN1 ---
Progress Note: A&P Assessment and plan (1) C1 cervical fracture: Problem details: - s/p unwitnessed fall 04/20/23, ED visits 04/20 and 04/21 - Neurosurgery reviewed images and recommends c-spine mobilization and outpatient follow-up with neurosurgery 04/24: Discussion with Dr. James, [facility], [place], patient noncompliant with wearing C-collar. No other suggestions. Recommends palliative care discussion with family, knowing risks, potential outcomes. Status: Acute (2) Odontoid fracture: Problem details: - s/p unwitnessed fall 04/20/23 - Neurosurgery reviewed images and recommends c-spine mobilization and follow-up with neurosurgery 04/24: Neurosurgery recommendations as above Status: Acute (3) SAH (subarachnoid hemorrhage): Problem details: -MRI shows small amount of layering subarachnoid hemorrhage along the occipital horns of the lateral ventricles. No evidence of infarct -repeat CT confirms same, which is a change since CT on 04/20/2023 -Coumadin discontinued, discussed with patient's grandson. As INR was 4.41, vitamin K was given to reverse this. -Neurosurgery contacted, Dr. James, no surgical intervention, recommending palliative care discussion with family Status: Acute (4) Delirium due to general medical condition: Problem details: - unclear if delirium preceded or occurred in consequence of the fall and hip fracture on March 13 or cervical fx on 04/20/23. According to his grandson this all seemed to begin with his hip fracture at the beginning of March - staff at [facility] where he has been living indicate they are not able to safely provide the level of care that he now demonstrates to them, which was 1:1 at time they transferred him to the ED for assessment 04/24: Patient has remained calm and cooperative during hospitalization. No sedatives/antipsychotics used. MRI ordered to further assess cognitive decline, results as above. 04/25: Refused meds, dinner last evening. This would be in alignment with further palliative cares discussion with family. retail services professional aware, continuing to look for placement, ?return to [facility] Adding seroquel at bedtime Status: Acute (5) Dementia: Problem details: History suggests this is relatively recent in onset though medical record indicates some mild cognitive issues present this past fall Mini-Cog scores in 2021 = 5, 2022 = 3. EMR shows self report of concern for declining memory Status: Acute (6) Fall: Problem details: Unwitnessed fall on 04/20/2023 with resultant C1C2 fxs. Increased bleed risk while on anticoagulation Status: Acute (7) Atrial fibrillation: Problem details: - anticoagulated on warfarin, pharmacy to manage. 04/24 - discontinued in setting a SAH, discussed with grandson - continue atenolol for rate control Status: Acute (8) Chronic anticoagulation: Problem details: For atrial fibrillation. Obviously high risk for falls. Review plan of care with family. Discontinued 04/24 Status: Acute (9) Urinary retention: Problem details: On admission, Mcintyre catheter has been in place for the past 2 weeks to address the urinary retention Decreased urinary output without evidence of acute kidney injury 04/24: Mcintyre catheter discontinued, bladder scan with straight cath t.i.d. p.r.n. Status: Acute (10) Microscopic hematuria: Problem details: per RN telephone conversation with patient's grandsonMigel, on 04/21/23, patient has had a mcintyre catheter in place for the past 2 weeks due to urinary retention UC negative Hemoglobin 9.9, stable, baseline. Continue to monitor Status: Acute (11) Intertrochanteric fracture of left femur: Problem details: ORIF at [facility] March 13 2023 Status: Chronic (12) Poor feeding: Problem details: Obtain lower dentures. May require us to feed him. Encourage oral liquids. In alignment with further palliative cares discussion with family Status: Acute (13) Type 2 diabetes mellitus: Problem details: Continue metformin. Hemoglobin A1c 6.6. Change glucose checks to b.i.d. to minimize possibly disrupting interactions Status: Chronic (14) Palliative care encounter: Problem details: 04/23: I spoke with the grandson today about his dementia/delirium/frequent falls. Discussed the likelihood that he would not be able to return to independent living. Discussed the difficulties of providing care when the patient is pulling out his IVs and refusing to wear a collar. Agreed that medications may be contributing to his delirium and do not have definite indications for use except in the case of need for sedation for severe agitation. Recommend the grandson talk with his father and uncle about goals of care. Status: Acute Plan Continue in hospital for safe disposition plan. This point patient will need close supervision to prevent him from getting up and will walking and having another fall with potential devastating injury. Continue to evaluate and manage urinary retention, delirium, poor nutrition. Disposition - ?Discharge back to [facility], palliative cares. ?Memory care unit. retail services professional to reach out to family for family care conference Time Spent With Patient Total time spent: Total time spent caring for the patient today was 45 minutes. This includes time spent for the visit reviewing the chart, time spent during the visit, time spent after the visit and documentation and planning in coordination of care. Subjective Date Seen: 04/25/23 Interval history: Patient lying in bed this morning, watching television, content. Oriented to self only. Denies pain of any sort. Report from last evening, patient declining meals. Refused pills. Grandson visited. Discussion with grandson including discontinuation of anticoagulation in setting of acute SAH. He had previously requested to continue anticoagulation knowing risks for falls and head bleeds. Exam Narrative: Exam Narrative: PHYSICAL EXAM General: Calm, NAD HEENT: Normocephalic, atraumatic, sclera white, EOMI, oral mucosa dry Cardiovascular: RRR, S1S2. +2 pitting edema Pulmonary: CTA bilaterally without rhonchi, rales, expiratory wheezes. No dyspnea on room air Abdominal: Soft, nondistended, NTTP Neurological: Alert, oriented to self, no focal findings Extremities: No gross joint deformity or swelling. AROMI. Neurovascularly intact Skin: Warm, dry. Const: Vital Signs, click to edit/add: Vital Signs - 24 hr 04/24/23 11:00 04/24/23 15:00 04/24/23 15:00 Temperature 97.0 F L 96.4 F L Pulse Rate [Apical ] Pulse Rate [Pulse Oximeter] 99 93 93 Respiratory Rate 20 22 Blood Pressure [Le ft Arm] 104/71 99/67 Pulse Oximetry 98 97 Oxygen Delivery Me thod Room Air Room Air 04/25/23 00:10 04/25/23 00:10 04/25/23 03:30 Temperature 97.7 F 97.4 F L Pulse Rate [Apical ] Pulse Rate [Pulse Oximeter] 99 97 Respiratory Rate 20 20 20 Blood Pressure [Le ft Arm] 108/84 127/70 Pulse Oximetry 95 97 Oxygen Delivery Me thod Room Air Room Air 04/25/23 08:23 04/25/23 08:23 Temperature 98 F Pulse Rate [Apical ] 125 H Pulse Rate [Pulse Oximeter] 125 H Respiratory Rate 24 24 Blood Pressure [Le ft Arm] 117/80 Pulse Oximetry 95 Oxygen Delivery Me thod Room Air Labs Labs: Laboratory Results - last 24 hr 04/24/23 04/24/23 04/25/23 05:43 11:09 06:00 WBC 8.34 RBC 3.37 L Hgb 9.9 L Hct 32.5 L MCV 96 MCH 29 MCHC 31 L Plt Count 190 INR 1.85 H Sodium 142 Potassium 3.6 Chloride 108 Carbon Dioxide 23 Anion Gap 11 BUN 30 Creatinine 0.8 Estimated GFR 86 Glucose 137 H Hemoglobin A1c 6.6 H Calcium 8.9 Lab Acknowledgement Test Added
[2023-04-25 11:00] VITALS: BP 108/68; PULSE 103; RESP 20; TEMP 36.7; O2SAT 97
--- NOTE | 2023-04-25 12:22 | PC.SOCIAL ---
Addendum entered by GRETTA Gauthier 04/25/23 12:31: During phone conversation with yvonne Migel, shared information on the Important Message from Medicare and the right to appeal hospital discharge. Original Note: Discharge planning: Spoke with RN Angeline,[phone], at [facility] who confirms they can receive pt back today and prefers pt to arrive before 2:00. Called pt's grandson Migel, who is aware and agrees with discharge to [facility]. Migel requested transportation be arranged with EMS non-emergent transport and is aware and agrees with estimate of cost of $100. needleworker to follow up as needed.
--- NOTE | 2023-04-25 13:51 | PC.NURSE ---
Discharge: Patient pleasant and cooperative, oriented to self only and . Patient vitally stable, lungs clear, BS WNL, IV removed catheter intact. Patient denies pain. Patient 1 assist/walker, gb. Patient used collar for a little bit then removed it. Patient was up in chair for a couple hours. Patient took bites of breakfast, blood sugar 115. Patient incontinent of bowel and bladder, diaper changed x1. Patient left the floor by EMS back to [facility] at 1328. Discharge forms unable to be signed by patient due to dementia.
--- NOTE | 2023-04-25 14:00 | PM.DS1 ---
DS: Providers Provider Date Seen: 04/25/23 Date of admission: 04/21/23 15:07 Primary care physician: Amador Jones MD Admitting Clinician: Juana Salguero MD Consults: 04/21/23 04:39 Consult to Occupational Therapy [CONS] Routine Comment: Reason(s) for OT Consult:: Evaluate and Treat Any Restrictions?:: See Comment Comment: Unstable neck fracture - please see previous neck immobility restrictions Consult to Physical Therapy [CONS] Routine Comment: Reason(s) for PT Consult:: Evaluate and Treat Any Restrictions?:: See Comment Comment: Unstable neck fracture - please see previous neck immobility restrictions Consult to Wastewater Superintendent [CONS] Routine Comment: Reason for Consult:: Discharge Planning Needs Attending Physician on discharge: Chantelle Vasquez [facility], [facility] Date of Discharge: 04/25/23 DS: Diagnosis Discharge Diagnosis (1) C1 cervical fracture: Status: Acute Problem details: - s/p unwitnessed fall 04/20/23, ED visits 04/20 and 04/21 - Neurosurgery reviewed images and recommends c-spine mobilization and outpatient follow-up with neurosurgery 04/24: Discussion with Dr. James, [facility] Neurosurgery, patient noncompliant with wearing C-collar. No other suggestions. Recommends palliative care discussion with family, knowing risks, potential outcomes. (2) Odontoid fracture: Status: Acute Problem details: - s/p unwitnessed fall 04/20/23 - Neurosurgery reviewed images and recommends c-spine mobilization and follow-up with neurosurgery 04/24: Neurosurgery recommendations as above (3) SAH (subarachnoid hemorrhage): Status: Acute Problem details: -MRI shows small amount of layering subarachnoid hemorrhage along the occipital horns of the lateral ventricles. No evidence of infarct -repeat CT confirms same, which is a change since CT on 04/20/2023 -Coumadin discontinued, discussed with patient's grandson. As INR was 4.41, vitamin K was given to reverse this. -Neurosurgery contacted, Dr. James, no surgical intervention, recommending palliative care discussion with family (4) Delirium due to general medical condition: Status: Acute Problem details: - unclear if delirium preceded or occurred in consequence of the fall and hip fracture on March 13 or cervical fx on 04/20/23. According to his grandson this all seemed to begin with his hip fracture at the beginning of March - staff at [facility] where he has been living indicate they are not able to safely provide the level of care that he now demonstrates to them, which was 1:1 at time they transferred him to the ED for assessment 04/24: Patient has remained calm and cooperative during hospitalization. No sedatives/antipsychotics used. MRI ordered to further assess cognitive decline, results as above. 04/25: Refused meds, dinner last evening. This would be in alignment with further palliative cares discussion with family. special services agent aware, continuing to look for placement, ?return to [facility] Adding seroquel at bedtime (5) Dementia: Status: Acute Problem details: History suggests this is relatively recent in onset though medical record indicates some mild cognitive issues present this past fall Mini-Cog scores in 2021 = 5, 2022 = 3. EMR shows self report of concern for declining memory (6) Fall: Status: Acute Problem details: Unwitnessed fall on 04/20/2023 with resultant C1C2 fxs. Increased bleed risk while on anticoagulation (7) Atrial fibrillation: Status: Acute Problem details: - anticoagulated on warfarin, pharmacy to manage. 04/24 - discontinued in setting a SAH, discussed with grandson - continue atenolol for rate control (8) Chronic anticoagulation: Status: Acute Problem details: For atrial fibrillation. Obviously high risk for falls. Review plan of care with family. Discontinued 04/24 (9) Urinary retention: Status: Acute Problem details: On admission, Mcintyre catheter has been in place for the past 2 weeks to address the urinary retention Decreased urinary output without evidence of acute kidney injury 04/24: Mcintyre catheter discontinued, bladder scan with straight cath t.i.d. p.r.n. (10) Microscopic hematuria: Status: Acute Problem details: per RN telephone conversation with patient's grandsonMigel, on 04/21/23, patient has had a mcintyre catheter in place for the past 2 weeks due to urinary retention UC negative Hemoglobin 9.9, stable, baseline. Continue to monitor (11) Intertrochanteric fracture of left femur: Status: Chronic Problem details: ORIF at [facility] March 13 2023 (12) Poor feeding: Status: Acute Problem details: Obtain lower dentures. May require us to feed him. Encourage oral liquids. In alignment with further palliative cares discussion with family (13) Type 2 diabetes mellitus: Status: Chronic Problem details: Continue metformin. Hemoglobin A1c 6.6. Change glucose checks to b.i.d. to minimize possibly disrupting interactions (14) Palliative care encounter: Status: Acute Problem details: 04/23: I spoke with the grandson today about his dementia/delirium/frequent falls. Discussed the likelihood that he would not be able to return to independent living. Discussed the difficulties of providing care when the patient is pulling out his IVs and refusing to wear a collar. Agreed that medications may be contributing to his delirium and do not have definite indications for use except in the case of need for sedation for severe agitation. Recommend the grandson talk with his father and uncle about goals of care. DS: Summary Hospital Course Hospital Course: [age] year old male past medical history significant for type 2 diabetes mellitus, cognitive impairment, urinary tension, atrial fibrillation on chronic anticoagulation was admitted to the medical floor following a fall sustaining a C1 and odontoid fracture. Course of care and details as noted above. Patient remained calm and cooperative during hospital course, not requiring sedatives or antipsychotics. Patient was not compliant with wearing his C-collar. We did discuss this with Neurosurgery who had no further recommendations, suggesting palliative cares. Discussed this with family, understanding risk for further falls and possible life ending events. The patient was not discharged back to [facility] with the collar as this had been a point of irritation for him. Following further studies, a subarachnoid hemorrhage was noted on an MRI. Anticoagulation was discontinued after discussion with family including risks for ongoing, further bleeds. Also discussed was risk of clots, stroke, LA in setting of atrial fibrillation without anticoagulation. During hospital course, patient not always willing to eat meals or take his medications. Per conversation with staff at [facility], this is normal for him. In discussion with staff and family, recommending ongoing current cares with changes as noted above. Would consider open discussion of palliative cares and at some point hospice care when appropriate. Remainder of chronic medical comorbidities were monitored and managed with home medications. Status at Discharge Functional status at discharge: uses cane/walker Overall status at discharge: patient is not back to baseline Time Spent with Patient Time attestation: Total time spent providing and/or coordinating discharge services: Time spent: Greater than 30 minutes Exam Narrative: Exam Narrative: PHYSICAL EXAM General: Pleasant, conversant, NAD Cardiovascular: RRR Pulmonary: No dyspnea Neurological: Alert, answering questions appropriately Skin: Warm, dry. Const: Vital Signs, click to edit/add: Vital Signs - 24 hr 04/24/23 15:00 04/24/23 15:00 04/25/23 00:10 Temperature 96.4 F L Pulse Rate [Apical ] Pulse Rate [Pulse Oximeter] 93 93 Respiratory Rate 22 20 Blood Pressure [Le ft Arm] 99/67 Pulse Oximetry 97 Oxygen Delivery Me thod Room Air 04/25/23 00:10 04/25/23 03:30 04/25/23 08:23 Temperature 97.7 F 97.4 F L Pulse Rate [Apical ] 125 H Pulse Rate [Pulse Oximeter] 99 97 Respiratory Rate 20 20 24 Blood Pressure [Le ft Arm] 108/84 127/70 Pulse Oximetry 95 97 Oxygen Delivery Me thod Room Air Room Air 04/25/23 08:23 04/25/23 11:00 Temperature 98 F 98.1 F Pulse Rate [Apical ] Pulse Rate [Pulse Oximeter] 125 H 103 H Respiratory Rate 24 20 Blood Pressure [Le ft Arm] 117/80 108/68 Pulse Oximetry 95 97 Oxygen Delivery Me thod Room Air Room Air DS: Data Data Completed and Pending Labs on day of discharge: Labs from last 24 hours 04/25/23 06:00 WBC 8.34 RBC 3.37 L Hgb 9.9 L Hct 32.5 L MCV 96 MCH 29 MCHC 31 L Plt Count 190 INR 1.85 H Sodium 142 Potassium 3.6 Chloride 108 Carbon Dioxide 23 Anion Gap 11 BUN 30 Creatinine 0.8 Estimated GFR 86 Glucose 137 H Calcium 8.9 Discharge Plan Discharge Disposition: [facility] Discharge Location: [facility] Date of Admission: 04/21/23 15:07 Attending Provider on Discharge: Chantelle Vasquez Primary Care Provider: Amador Jones Condition: Stable Anticipated Discharge Date/Time: 04/25/23 12:16 Discharge Medications: Continued metformin 500 mg tablet 500 mg PO DAILY atenolol 25 mg tablet 25 mg PO DAILY acetaminophen 500 mg tablet 1,000 mg PO Q8H PRN calcitonin (salmon) 200 unit/actuation spray,non-aerosol 1 spray intranasal (ALT) DAILY Patient Comments: 1 SPRAY IN 1 NOSTRIL ONCE DAILY. ALTERNATE NOSTRILS. fluticasone propionate 50 mcg/actuation spray,suspension 2 spray INTRANASAL DAILY atenolol 50 mg tablet 50 mg PO DAILY tamsulosin 0.4 mg capsule 0.4 mg PO BID Discontinued olanzapine [Zyprexa] 5 mg tablet 5 mg PO BID PRNQty: 30 2RF duloxetine 60 mg capsule,delayed release(DR/EC) 60 mg PO DAILY warfarin 5 mg tablet PO Discharge Orders: Discharge Order (Routine); Ordered 04/25/23 Ordered By: Chantelle Vasquez Additional Instructions: Patient has a cervical fracture. He is not compliant with a C-collar. This has been discussed with Neurosurgery, recommending no further interventions, suggesting palliative care. Patient has been calm and cooperative during his hospital stay, not requiring sedatives or antipsychotics. Would recommend that if he refuses meals or medications to allow for this. Would recommend consideration for hospice care, in discussion with family, when this becomes appropriate. Indwelling Mcintyre catheter was removed. Recommend straight catheterization t.i.d. as needed. Warfarin has been discontinued in setting of subarachnoid hemorrhage following a fall. Discussed risks for bleed and recurrent falls with family. Subarachnoid hemorrhage. No surgical intervention. Anticoagulation discontinued. Atrial fibrillation. Continue rate control with atenolol. Patient may decide to refuse medications. Anticoagulation has been discontinued given fall risk and acute subarachnoid hemorrhage. Risks for clots, stroke, LA discussed with family. Activity Level: No Restrictions, Use Cane and Use Walker Activity Detail: Fall risk. Discharge Diet: Diabetic Follow Up Appointments: [facility] [Outside] Amador Jones MD [Primary Care Provider] - 05/05/23 (Post hospital follow up, cervical fracture, cognitive impairment. Medication management, palliative care consideration) Forms: [facility] Info Instructions Admit to: SNF Discharge Potential: Poor Length of Stay: <30 days Can use facility standing orders?: Yes Code Status: DNR/DNI Rehab Potential: Poor Therapy: Physical Therapy and Occupational Therapy Therapy Orders: Evaluate and Treat Oxygen: No Urinary Catheter: No Glucose Checks: Per facility protocol Hospice Evaluate and Admit: when appropriate Orders are good >30 days: No Signature: Chantelle Vasquez, JENARO, PA-C [facility]
== END 2023-04-25 13:28 | DRG 884 ==
LOC: ED 03:20 → MEDSURG 03:42
PROVIDERS: Family Medicine; Internal Medicine; Physician Assistant; Admitting Provider Family Medicine; Emergency Provider Family Medicine; PCP Family Medicine; Visit Provider Family Medicine
DX: F03.911 Unspecified dementia, unspecified severity, with agitation (principal); S06.6X0A Traumatic subarachnoid hemorrhage without loss of consciousness, initial encounter; G93.41 Metabolic encephalopathy; F05 Delirium due to known physiological condition; I50.9 Heart failure, unspecified; I25.10 Atherosclerotic heart disease of native coronary artery without angina pectoris; E11.9 Type 2 diabetes mellitus without complications; I48.91 Unspecified atrial fibrillation; W18.30XD Fall on same level, unspecified, subsequent encounter; Z91.81 History of falling; S12.000D Unspecified displaced fracture of first cervical vertebra, subsequent encounter for fracture with routine healing; S12.112D Nondisplaced Type II dens fracture, subsequent encounter for fracture with routine healing; D64.9 Anemia, unspecified; K59.00 Constipation, unspecified; R31.29 Other microscopic hematuria; R33.9 Retention of urine, unspecified; W19.XXXD Unspecified fall, subsequent encounter; Z79.01 Long term (current) use of anticoagulants; S72.145D Nondisplaced intertrochanteric fracture of left femur, subsequent encounter for closed fracture with routine healing; Z51.5 Encounter for palliative care; R63.39 Other feeding difficulties; E78.00 Pure hypercholesterolemia, unspecified; Z79.84 Long term (current) use of oral hypoglycemic drugs; C61 Malignant neoplasm of prostate; I11.0 Hypertensive heart disease with heart failure
CPT/HCPCS: 36415; 51798; 70450; 70496; 70498; 70551; 72125; 73502; 80048; 82962; 83036; 84443; 85025; 85027; 85610; 85730; 87631; 93005; 97110; 97116; 97161; 97166; 97530; 97535; 99282; 99284; 99285; A9270; G0378; J3430; J7030; Q9967

== ENCOUNTER 2023-04-25 13:23 | Outpatient (CLI) | payer MEDICARE, BC, SELFPAY | END 2023-04-25 13:24 | disposition home or self-care (01) | LOC: AMB 05-09 11:55 | PROVIDERS: PCP Family Medicine; Visit Provider Student in an Organized Health Care Education/Training Program | DX: F03.90 Unspecified dementia, unspecified severity, without behavioral disturbance, psychotic disturbance, mood disturbance, and anxiety (principal) | CPT/HCPCS: A0425; A0428 ==

== ENCOUNTER 2023-05-02 18:50 | Outpatient (CLI) | payer MEDICARE, BC, SELFPAY ==
[2023-05-02 19:26] LABS: Appearance Urine Cloudy (Clear); Bilirubin Urine 1+ (Negative); Blood Urine 3+ (Negative); Color Urine Orange (Yellow); Glucose Urine Negative (Negative); Ketones Urine Trace (Negative); Leukocyte Esterase Urine 2+ (Negative); Nitrite Urine Negative (Negative); Protein Urine 2+ (Negative); Specific Gravity Urine 1.025 (1.000-1.030); Urobilinogen Urine 0.2 (0.2-1.0); pH Urine 5.5 (5.0-8.5)
[2023-05-02 19:40] LABS: Amorphous Sediment Urine Few; Bacteria Urine Many; RBC Urine >100 (0-2); Squamous Epithelial Cell Urine Few (None-Few); WBC Urine >100 (0-5)
== END 2023-05-02 18:51 | disposition home or self-care (01) ==
LOC: NPINS 18:57
PROVIDERS: PCP Family Medicine; Visit Provider Nurse Practitioner Adult Health
DX: Z79.899 Other long term (current) drug therapy (principal); F05 Delirium due to known physiological condition
CPT/HCPCS: 81001; 87086; 87186